=== PATIENT | female | born 1965 | race African-American/Black ===

== ENCOUNTER 2018-03-01 07:26 | Day surgery (SDC) | payer BC ==
[2018-02-28 14:17] VITALS: BMI 57.9
[2018-03-01] MEDS ORDERED: Lidocaine 1% PF 5 ML VIAL ONE (13:35)
[2018-03-01] MEDS ORDERED: PROPOFOL 200 MG/20 ML VIAL ONE (13:35)
--- NOTE | 2018-03-01 14:18 | OP ---
GASTROINTESTINAL ENDOSCOPY NOTE SURGEON: Braydon Hernandez M.D. AIRCRAFT [employer]TER DISPATCHER SURGEON: None. PROCEDURE PERFORMED: Screening colonoscopy. INDICATION: A 53-year-old -[place] woman, here for first average risk screening colonoscopy. She has not had any prior colonoscopy. MEDICATIONS: See anesthesia record. FINDINGS: After discussion of the risks, benefits and alternatives of the procedure, informed consen t was obtained and witnessed. Pre-endoscopic cardiopulmonary examination was satisfactory. Timeout was performed before sedation was achieved. Sedation was achieved with anesthesia assistance in the endoscopy unit. A digital rectal exam was performed which was unremarkable. A Pentax adult colonosc ope was inserted into the anus and passed forward to the cecum in the usual fashion. The cecal base was identified by the appendiceal orifice as well as the ileocecal valve. The terminal ileum was not intubated. The colonoscope was slowly withdrawn in a gradual and circumferential manner with carefu l examination of the entire colonic mucosa. The quality of the prep was good. The colonic mucosa ap peared normal throughout. There was no evidence of any polyps or mass lesions, no mucosal abnormalit ies. Retroflexion in the rectum was unremarkable. The colonoscope was completely withdrawn and the patient allowed to recover. The patient tolerated the procedure well. There were no immediate post- procedure complications. IMPRESSION: Normal colonoscopy to the cecum. RECOMMENDATIONS: Repeat colonoscopy for screening in 10 years.
== END 2018-03-01 11:43 | disposition home or self-care (01) ==
LOC: SDC 07:26
PROVIDERS: ATTEND Internal Medicine
PROC: 0DJD8ZZ Inspection of Lower Intestinal Tract, Via Natural or Artificial Opening Endoscopic (ICD-10-PCS; principal; 2018-03-01)
DX: Z12.11 Encounter for screening for malignant neoplasm of colon (principal); D64.9 Anemia, unspecified; I10 Essential (primary) hypertension; E78.00 Pure hypercholesterolemia, unspecified; E11.9 Type 2 diabetes mellitus without complications; Z79.82 Long term (current) use of aspirin; Z79.899 Other long term (current) drug therapy; Z79.4 Long term (current) use of insulin
CPT/HCPCS: 36416; J2001; J2704

== ENCOUNTER 2018-03-03 09:20 | Outpatient (CLI) | payer BC | END 2018-03-03 09:21 | disposition home or self-care (01) | LOC: BICMAMMO 09:20 | PROVIDERS: ATTEND Family Medicine | DX: Z01.411 Encounter for gynecological examination (general) (routine) with abnormal findings (principal); N63.0 Unspecified lump in unspecified breast; N95.8 Other specified menopausal and perimenopausal disorders; Z80.3 Family history of malignant neoplasm of breast; R92.2 Inconclusive mammogram; E04.1 Nontoxic single thyroid nodule | CPT/HCPCS: 77066; G0279 ==

== ENCOUNTER 2018-03-03 14:23 | Outpatient (CLI) | payer BC | END 2018-03-03 14:24 | disposition home or self-care (01) | LOC: BICULT 14:23 | PROVIDERS: ATTEND Otolaryngology Plastic Surgery within the Head & Neck | DX: E04.1 Nontoxic single thyroid nodule (principal) | CPT/HCPCS: 76536 ==

== ENCOUNTER 2018-12-12 21:30 | Inpatient (IN) | payer BC ==
--- NOTE | 2018-12-12 23:50 | ULT ---
US Venous Doppler Rt Unilat History: [Lower extremity edema] Comparison: None. Findings: Real-time grayscale, color, and spectral analysis of the right lower extremity venous syste m was performed. The common femoral, femoral, proximal portions greater saphenous and deep femoral veins as well as the popliteal and posterior tibial veins were interrogated. Normal flow, augmentation, and compression. Moderate lower extremity edema. Edema does limit evaluati on of the posterior tibial vein. Impression: Limited evaluation the posterior tibial vein. No proximal thrombosis.
[2018-12-13 01:07] LABS: Bilirubin Small (Negative); Blood, Urine Negative (Negative); Clarity CLEAR (Clear); Glucose, Urine (Dipstick) Negative (Negative); Leukocyte Negative (Negative); Nitrite Negative (Negative); Protein, Urine (Dipstick) 30 mg/dL (Neg-Trace); Specific Gravity, Urine 1.027 (1.002-1.036); pH, Urine 5.5 (5.0-9.0)
[2018-12-13 01:09] LABS: Bacteria/HPF None Seen HPF (None Seen); Hyaline Casts/LPF 0-3 HYALINE CAST LPF (0-3 Hyaline); Pathc Cast-AUWi Flag 0.13 (0-2.49); RBC/HPF 0-3 HPF (0-3); WBC/HPF 0-3 HPF (0-3)
[2018-12-13] MEDS ORDERED: Dextrose 5% in Water 1,000 ML IV PRN (01:48)
[2018-12-13] MEDS ORDERED: HumaLOG 300 UNITS/3 ML VIAL SC PRN (01:48)
[2018-12-13] MEDS ORDERED: Dextrose 50% Abboject 50 ML SYRINGE SLOW IVP PRN (01:48)
[2018-12-13] MEDS ORDERED: Ondansetron PF 4 MG/2 ML Vial IVP PRN (01:48)
[2018-12-13] MEDS ORDERED: Bisacodyl 5 MG TAB PO PRN (01:48)
[2018-12-13] MEDS ORDERED: Vancomycin HCl 1 GM in Premix Bag 1 BAG IVPB SCH (02:00)
[2018-12-13] MEDS ORDERED: Insulin Glargine 65 UNITS in Pre-Filled Syringe 1 EACH SC SCH (02:30)
--- NOTE | 2018-12-13 02:41 | HP ---
PRIMARY CARE PROVIDER: Ciara Jacob MD. CHIEF COMPLAINT: Leg pain and swelling. HISTORY OF PRESENT ILLNESS: Ms. Ferny Welch is a pleasant 53-year-old lady who was seen at [facility] on December 13, 2018. She reports that 2 days ago she developed swelling of the right foot. She also reports pain in the right foot, but is unable to further characterize the pain. She took Tylenol at home without significant relief. She also reports chills. She denies any nausea, vomiting, or diarrhea. She reports that the swelling and pain have been constant. Today, her grandson fell on that foot. Since then, she has been unable to bear weight on that foot. 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 She was told to go to the emergency room since it may be infected. She presented to the emergency room at [place]. There, she received Lovenox for suspected DVT as well as Zosyn and vancomycin for infection and was transferred to [facility]. REVIEW OF SYSTEMS: All other systems reviewed and found to be negative. PAST MEDICAL HISTORY: Diabetes mellitus type 2, dyslipidemia, and hypertension. She also has a history of obesity and chronic back pain. PAST SURGICAL HISTORY: Tubal ligation and hysterectomy. PSYCHIATRIC HISTORY: None. SOCIAL HISTORY: The patient denies tobacco use, alcohol use, or recreational drug use. FAMILY HISTORY: Significant for diabetes mellitus and heart disease. ALLERGIES: NO KNOWN DRUG ALLERGIES. CURRENT MEDICATIONS: 1. Lantus 65 units at bedtime. 2. Pravastatin 20 mg daily. 3. Clonidine 0.1 mg daily. 4. Gabapentin 100 mg 3 times a day. 5. Amlodipine 10 mg daily. 6. Potassium chloride 20 mEq daily. 7. Humalog insulin by sliding scale. 8. Ibuprofen p.r.n. PHYSICAL EXAMINATION: GENERAL: Ms. Ferny Welch is awake and alert, not in acute distress. VITAL SIGNS: Blood pressure is 159/70, pulse 90, respiratory rate 27, and oxygen saturation 97% on room air. She is afebrile. EYES: No scleral icterus. No conjunctival pallor. ENT: Moist mucosal membranes. No oropharyngeal erythema or exudates. NECK: Supple, nontender, trachea is midline. RESPIRATORY: Accessory muscles of breathing are not active. Chest wall movements are symmetric bilaterally. Lungs are clear to auscultation without wheeze, rhonchi, or crepitations. CARDIOVASCULAR: S1 and S2 are heard, regular. Peripheral pulses are palpable. No carotid bruit. No pericardial rub. ABDOMEN: Soft, nontender, bowel sounds are heard. NEUROLOGIC: Cranial nerves 2 through 12 are intact. MUSCULOSKELETAL: Power is 5/5 in all 4 extremities. SKIN: She has bilateral lower extremity edema. Right leg and foot are erythematous, warm to touch, and mildly tender. LYMPHATIC: No inguinal lymphadenopathy. PSYCHIATRIC: Normal mood, normal affect, the patient is oriented to person, place, and time. BODY HABITUS: She is obese. LABORATORY DATA: Ms. Isaacs's labs and investigations were reviewed. She has leukocytosis with 13,700 white cells, of which 75.4% are neutrophils. Hemoglobin and platelet count are normal. She has normal electrolytes, normal creatinine, and normal liver profile except for a mildly elevated globulin of 4.6. Urinalysis is negative for nitrite and leukocyte esterase. Venous Dopplers of the right lower extremity was limited evaluation, but there was no proximal thrombosis. ASSESSMENT AND PLAN: Ms. Ferny Welch is a pleasant 53-year-old lady who was seen at [facility] on December 13, 2018. Her problem list includes: 1. Sepsis: Ms. Ferny Welch is presenting with sepsis, most likely secondary to cellulitis of her right lower extremity. She will be admitted to the hospital for further management. 2. Diabetic foot infection: She has cellulitis of the right lower extremity. She has received vancomycin and Zosyn, which I will continue. We will await blood cultures. 3. Diabetes mellitus type 2: We will start the patient on Accu-Cheks and insulin sliding scale. 4. Hypertension: We will monitor vital signs and titrate antihypertensives as needed. 5. Dyslipidemia: We will continue pravastatin. Many thanks for allowing me to participate in your patient's care. Please feel free to contact me with any questions or concerns. LEVEL OF RISK: Moderate. LEVEL OF COMPLEXITY: Moderate. Job ID: [id number]
[2018-12-13 04:12] LABS: #Eosinphils 0.1 thou/uL (0.0-0.7); #Lymphocytes 1.8 thou/uL (1.20-3.40); #Monocytes 0.6 thou/uL (0.11-0.59); %Basophils 0.4 % (0.0-1.0); %Eosinophils 0.6 % (0.0-10.0); %Lymphocytes 17.5 % (21.0-51.0); %Monocytes 5.3 % (0.0-10.0); %Neutrophils 76.2 % (42.0-75.0); Hemoglobin 11.5 g/dL (12.0-16.0); Mean Corpuscular HGB CONC 31.1 g/dL (32.0-36.0); Mean Corpuscular Hemoglobin 25.2 pg (27.0-31.0); Mean Corpuscular Volume 81.1 fL (78.0-98.0); Mean Platelet Volume 11.1 fL (7.4-10.4); Platelet Count 140 thou/uL (130-400); RBC Distribution Width 14.9 % (11.5-14.5); Red Blood Cell (RBC) Count 4.56 mill/uL (4.20-5.40); White Blood Cell (WBC) Count 10.5 thou/uL (4.8-10.8)
[2018-12-13 04:30] LABS: Anion Gap 12 mmol/L (10-20); BUN (Urea Nitrogen) 15 mg/dL (9.8-20.1); Calc. Creatinine Clearance 265 mL/min (70-130); Carbon Dioxide 25 mmol/L (22-29); Chloride 107 mmol/L (98-107); Estimated GFR-MDRD Greater than 90; Glucose 233 mg/dL (70-105); Potassium 3.6 mmol/L (3.5-5.1); Sodium 140 mmol/L (136-145)
[2018-12-13] MEDS: Vancomycin HCl 1.5 GM in Sodium Chloride 0.9% 250 ML 300 ML IVPB SCH ×2 (05:00→17:22)
--- NOTE | 2018-12-13 08:08 | RAD ---
PA AND LATERAL CHEST: Comparison: 06-11-13 History: Dyspnea. FINDINGS: Heart size is enlarged. Pulmonary vessels are mildly engorged. No focal infiltrative process is seen. IMPRESSION: Cardiomegaly with mild pulmonary vascular engorgement. POS: DARRIN
[2018-12-13 08:44] VITALS: BMI 59.0
[2018-12-13] MEDS: Enoxaparin Sodium 40 MG/0.4 ML SYRINGE SC SCH (09:15)
[2018-12-13] MEDS: Piperacillin/Tazobactam 4.5 GM in Sodium Chloride 0.9% 100 ML IVPB SCH ×3 (09:15→16:30)
[2018-12-13] MEDS ORDERED: Enoxaparin Sodium 40 MG/0.4 ML SYRINGE ONE (09:22)
[2018-12-13] MEDS ORDERED: cloNIDine 0.1 MG TAB PO PRN (11:04)
[2018-12-13] MEDS ORDERED: hydrALAZINE 20 MG/ML VIAL SLOW IVP PRN (11:04)
--- NOTE | 2018-12-13 11:44 | PDOC.PN ---
- Subjective Encounter Start Date: 12/13/18 Encounter Start Time: 10:00 Subjective: Resting in bedside chair w/o complaints - Objective Vital Signs & Weight: Vital Signs (12 hours) Temp Pulse Resp BP Pulse Ox 12/13/18 10:45 98.1 F 87 20 180/91 H 97 12/13/18 07:50 98.2 F 90 18 156/116 H 98 Weight Weight 175.994 kg I&O: 12/12/18 12/13/18 12/14/18 06:59 06:59 06:59 Intake Total 600 Balance 600 Result Diagrams: 12/13/18 04:04 12/13/18 04:04 Additional Labs: Accuchecks 12/13/18 07:54 POC Glucose 131 H Phys Exam - Physical Examination HEENT: PERRLA, moist MMs Neck: no nodes Respiratory: clear to auscultation bilateral Cardiovascular: RRR Gastrointestinal: soft, non-tender Musculoskeletal: edema present right worse than left Neurological: normal sensation, moves all 4 limbs Lymphatic: no nodes Psychiatric: normal affect, A&O x 3 Skin: normal turgor, cap refill <2 seconds Deviation from normal: right lower leg /foot erythema, warmth and edema Dx/Plan (1) Cellulitis Code(s): L03.90 - CELLULITIS, UNSPECIFIED Status: Acute (2) Sepsis Code(s): A41.9 - SEPSIS, UNSPECIFIED ORGANISM Status: Acute (3) Diabetes mellitus Code(s): E11.9 - TYPE 2 DIABETES MELLITUS WITHOUT COMPLICATIONS Status: Chronic (4) Hypertension Code(s): I10 - ESSENTIAL (PRIMARY) HYPERTENSION Status: Chronic - Plan cont current plan of care, continue antibiotics, out of bed/ambulate, DVT proph w/heparin, DVT proph w/lovenox Continue IV ABX, -: restart home meds, SS mild scale -: Will continue to monitor * . Review of Systems - Review of Systems Skin: Other - Medications/Allergies Allergies/Adverse Reactions: Allergies Allergy/AdvReac Type Severity Reaction Status Date / Time No Known Allergies Allergy Verified 02/28/18 14:17 Medications: Current Medications Bisacodyl (Dulcolax) 10 mg PO DAILYPRN PRN PRN Reason: Constipation Clonidine (Catapres) 0.1 mg PO Q4H PRN PRN Reason: SBP > 180 Dextrose/Water (Dextrose 50%) 25 gm SLOW IVP PRN PRN PRN Reason: Hypoglycemia Enoxaparin Sodium (Lovenox) 40 mg SC 0900 [facility] Last Admin: 12/13/18 09:15 Dose: 40 mg Glucagon (Glucagon) 1 mg IM PRN PRN PRN Reason: Hypoglycemia Hydralazine HCl (Apresoline) 10 mg SLOW IVP Q4H PRN PRN Reason: SBP > 180 and HR < 70 Insulin Glargine 65 units/ (Miscellaneous Medication) 0.65 mls @ 0 mls/hr SC HS [facility] Dextrose/Water (D5w) 1,000 mls @ 0 mls/hr IV .Q0M PRN PRN Reason: Hypoglycemia Piperacillin Sod/Tazobactam (Sod 4.5 gm/ Sodium Chloride) 100 mls @ 200 mls/hr IVPB Q8HR [facility] Last Admin: 12/13/18 09:15 Dose: 100 mls Vancomycin HCl 1.5 gm/ Sodium (Chloride) 300 mls @ 200 mls/hr IVPB 0500,1700 [facility] Last Admin: 12/13/18 05:00 Dose: 300 mls Insulin Human Lispro (Humalog) 0 units SC .MILD SLIDING SCALE PRN PRN Reason: Mild Correctional Scale Miscellaneous Medication (Pharmacy To Dose) 1 each IVPB PRN PRN PRN Reason: Pharmacy to dose Ondansetron HCl (Zofran) 4 mg IVP Q6H PRN PRN Reason: Nausea/Vomiting
[2018-12-13] MEDS ORDERED: Sodium Chloride 0.9% 10 ML ONE ×2 (11:45→16:27)
[2018-12-13] MEDS ORDERED: Ibuprofen 800 MG TAB PO PRN (16:11)
[2018-12-13] MEDS ORDERED: HYDROcodone/Acetaminophen 5/325 mg Tablet PO PRN (16:12)
[2018-12-13] MEDS: HYDROcodone/Acetaminophen 5/325 mg Tablet PO PRN (16:31)
[2018-12-13] MEDS: Furosemide 40 MG TAB PO SCH (16:31)
[2018-12-13] MEDS ORDERED: Non-Formulary Item 1 EACH (Insulin Glargine,Hum.Rec.Anlog [Lantus Solostar] 65 UNIT) SQ SCH (21:00)
[2018-12-13] MEDS: Pravastatin Sodium 20 MG TAB PO SCH (21:16)
[2018-12-13] MEDS: cloNIDine 0.1 MG TAB PO SCH (21:16)
[2018-12-13] MEDS: Gabapentin 300 MG CAP PO SCH (21:16)
[2018-12-13] MEDS: Insulin Glargine 65 UNITS in Pre-Filled Syringe 1 EACH SC SCH (21:25)
[2018-12-14] MEDS ORDERED: Sodium Chloride 0.9% 10 ML ONE (00:24)
[2018-12-14] MEDS: Piperacillin/Tazobactam 4.5 GM in Sodium Chloride 0.9% 100 ML IVPB SCH ×3 (00:34→16:26)
[2018-12-14] MEDS: Vancomycin HCl 1.5 GM in Sodium Chloride 0.9% 250 ML 300 ML IVPB SCH (04:50)
[2018-12-14] MEDS: HYDROcodone/Acetaminophen 5/325 mg Tablet PO PRN ×2 (06:09→16:31)
[2018-12-14] MEDS: Furosemide 40 MG TAB PO SCH ×2 (08:17→20:31)
[2018-12-14] MEDS: cloNIDine 0.1 MG TAB PO SCH ×2 (08:17→20:30)
[2018-12-14] MEDS: Enoxaparin Sodium 40 MG/0.4 ML SYRINGE SC SCH (08:18)
--- NOTE | 2018-12-14 16:20 | PDOC.PN ---
- Subjective Encounter Start Date: 12/14/18 Encounter Start Time: 14:30 Ms. Ferny Welch was seen today in follow-up of cellulitis of the right foot. She notes continued redness and swelling of the foot. she does not have any new complaints. - Objective MAR Reviewed: Yes Vital Signs & Weight: Vital Signs (12 hours) Temp Pulse Resp BP Pulse Ox 12/14/18 12:00 97.9 F 76 20 174/69 H 12/14/18 08:00 98.5 F 75 20 149/69 H 92 L 12/14/18 04:45 20 Weight Weight 388 lb I&O: 12/13/18 12/14/18 12/15/18 06:59 06:59 06:59 Intake Total 600 Balance 600 Result Diagrams: 12/13/18 04:04 12/13/18 04:04 Additional Labs: Accuchecks 12/14/18 12/14/18 12/13/18 11:53 06:04 21:05 POC Glucose 113 H 145 H 159 H 12/13/18 16:34 POC Glucose 113 H Phys Exam - Physical Examination HEENT: PERRLA Respiratory: no wheezing, no rales, no rhonchi, clear to auscultation bilateral Cardiovascular: RRR, no significant murmur, no rub Gastrointestinal: soft, non-tender, no distention, positive bowel sounds Musculoskeletal: pulses present, edema present + bilateral lymph edema, and erythema in the right foot, and into the calf mild warmth, bilateral chronic venous stasis changes Neurological: non-focal, normal sensation Dx/Plan (1) Diabetes mellitus type 2 in obese Code(s): E11.69 - TYPE 2 DIABETES MELLITUS WITH OTHER SPECIFIED COMPLICATION; E66.9 - OBESITY, UNSPECIFIED Status: Acute (2) Cellulitis Code(s): L03.90 - CELLULITIS, UNSPECIFIED Status: Acute Qualifiers: Site of cellulitis of extremity: lower extremity Laterality: right (3) Hypertension Code(s): I10 - ESSENTIAL (PRIMARY) HYPERTENSION Status: Chronic - Plan * Cellulitis of the right foot and lower extremity- continue IV Vancomycin and Zosyn * Hopefully can transition to oral antibiotics tomorrow if the foot and leg are improved * HTN- blood pressure is elevated- will re-start Amlodipine * DM- blood glucose is stable- continue Lantus and SSI.
[2018-12-14 16:31] LABS: Vancomycin, Trough 11.9 ug/mL
[2018-12-14] MEDS: Gabapentin 300 MG CAP PO SCH (20:31)
[2018-12-14] MEDS: Pravastatin Sodium 20 MG TAB PO SCH (20:31)
[2018-12-14] MEDS: Insulin Glargine 65 UNITS in Pre-Filled Syringe 1 EACH SC SCH (20:35)
[2018-12-15] MEDS: Piperacillin/Tazobactam 4.5 GM in Sodium Chloride 0.9% 100 ML IVPB SCH ×3 (00:33→16:15)
[2018-12-15] MEDS: cloNIDine 0.1 MG TAB PO SCH (08:46)
[2018-12-15] MEDS: Furosemide 40 MG TAB PO SCH (08:46)
[2018-12-15] MEDS: Enoxaparin Sodium 40 MG/0.4 ML SYRINGE SC SCH (08:47)
[2018-12-15] MEDS ORDERED: Amlodipine 10 MG TAB PO SCH (09:00)
--- NOTE | 2018-12-15 15:50 | PDOC.PN ---
- Subjective Encounter Start Date: 12/15/18 Encounter Start Time: 15:49 Ms. Isaacs was seen today in follow-up of cellulitis. She does not have any new complaints - Objective MAR Reviewed: Yes Vital Signs & Weight: Vital Signs (12 hours) Temp Pulse Resp BP BP Pulse Ox 12/15/18 11:16 98.3 F 75 18 151/83 H 94 L 12/15/18 10:34 94 L 12/15/18 08:46 166/92 H 12/15/18 08:45 78 166/92 H 12/15/18 08:00 97.9 F 78 18 166/92 H 94 L 12/15/18 04:00 97.6 F 78 18 141/67 H 92 L Weight Weight 388 lb I&O: 12/14/18 12/15/18 12/16/18 06:59 06:59 06:59 Intake Total 600 950 Balance 600 950 Result Diagrams: 12/13/18 04:04 12/13/18 04:04 Additional Labs: Accuchecks 12/15/18 12/15/18 12/14/18 11:26 04:56 20:32 POC Glucose 93 98 134 H 12/14/18 16:37 POC Glucose 89 Phys Exam - Physical Examination HEENT: PERRLA Respiratory: no wheezing, no rales, no rhonchi, clear to auscultation bilateral Cardiovascular: RRR, no significant murmur, no rub Gastrointestinal: soft, non-tender, no distention, positive bowel sounds Musculoskeletal: pulses present, edema present + chronic venous stasis changes, mild erythema of the right leg right foot swelling, much improved Neurological: non-focal Dx/Plan (1) Diabetes mellitus type 2 in obese Code(s): E11.69 - TYPE 2 DIABETES MELLITUS WITH OTHER SPECIFIED COMPLICATION; E66.9 - OBESITY, UNSPECIFIED Status: Acute (2) Cellulitis Code(s): L03.90 - CELLULITIS, UNSPECIFIED Status: Acute Qualifiers: Site of cellulitis of extremity: lower extremity Laterality: right (3) Hypertension Code(s): I10 - ESSENTIAL (PRIMARY) HYPERTENSION Status: Chronic - Plan * Cellulitis of the right foot- much improved- will transition her to Keflex for 2 weeks followed by Penicillin for 1 month.
[2018-12-15 19:10] VITALS: BP 165/85; TEMP 98
--- NOTE | 2018-12-16 04:07 | DIS ---
DATE OF ADMISSION: 12/13/2018 DATE OF DISCHARGE: 12/15/2018 PRIMARY CARE PHYSICIAN: Ciara Jacob MD DISCHARGE DISPOSITION: Home. PRIMARY DISCHARGE DIAGNOSES: 1. Cellulitis of the right foot and leg. 2. Diabetes mellitus, type 2. 3. Morbid obesity. 4. Hyperlipidemia. 5. Hypertension. 6. Chronic low back pain. DISCHARGE MEDICATIONS: Include; 1. Keflex 500 mg twice a day for 2 weeks followed by penicillin-VK 250 mg 3 times a day for at least a month. 2. Nystatin powder to place between the toes. 3. Pravastatin 20 mg at bedtime. 4. Potassium 20 mEq daily. 5. Insulin 70/30, 65 units twice daily. 6. Ibuprofen 800 mg q.8 as needed. 7. Gabapentin 300 mg at bedtime. 8. Furosemide 40 mg twice daily. 9. Clonidine 0.1 mg twice a day. 10. Amlodipine 10 mg daily. CODE STATUS: Full code. ALLERGIES: NO KNOWN DRUG ALLERGIES. PROCEDURES DONE: During the admission, the patient had a venous Doppler, which was negative for DVT. HOSPITAL COURSE: Ms. Ferny Welch is a pleasant 53-year-old female who presented to the emergency room with complaints of pain and swelling in her right leg and right foot. She was evaluated in the ER. She had an ultrasound of the leg, which ruled out DVT. She was found to have a cellulitis of the lower extremity and started on IV antibiotics. She improved dramatically over the course of the next couple of days and was transitioned over to an oral antibiotic and then discharged home to have close outpatient followup. I also counseled her on the care of her legs with regard to chronic venous stasis, to try to keep her legs elevated, reduce her sodium intake, wear compression stockings during the day. If she is not able to manage the compression stockings, then to wrap it with both legs with an Unruly bandage with light pressure. Also to keep her skin well lubricated and use a nystatin cream between the toes. Job ID: [id number]
--- NOTE | 2018-12-17 14:23 | EKG ---
Test Reason : Blood Pressure : / mmHG Vent. Rate : 086 BPM Atrial Rate : 086 BPM P-R Int : 138 ms QRS Dur : 096 ms QT Int : 374 ms P-R-T Axes : 041 -06 088 degrees QTc Int : 447 ms Sinus rhythm with occasional Premature ventricular complexes Left ventricular hypertrophy with repolarization abnormality Abnormal ECG Confirmed by MERVIN MUSTAFA [id number]), editor at large ESDRAS GOMEZ ([id number]) on 12/17/2018 2:22:59 PM Referred By: Confirmed By:MERVIN MUSTAFA
== END 2018-12-15 18:48 | disposition home or self-care (01) | DRG 872 ==
LOC: ERS 21:30 → OBSVTOIN 12-13 00:57 → ERHOLD 12-13 00:57 → 3SE 12-13 11:19 → T4-A 12-14 20:15
PROVIDERS: ADMIT Internal Medicine; ATTEND Internal Medicine
DX: A41.9 Sepsis, unspecified organism (principal); L03.115 Cellulitis of right lower limb; Z68.43 Body mass index [BMI] 50.0-59.9, adult; E78.5 Hyperlipidemia, unspecified; I10 Essential (primary) hypertension; E11.628 Type 2 diabetes mellitus with other skin complications; G89.29 Other chronic pain; M54.9 Dorsalgia, unspecified; E66.9 Obesity, unspecified; Z98.51 Tubal ligation status; Z90.710 Acquired absence of both cervix and uterus; Z79.4 Long term (current) use of insulin
CPT/HCPCS: 36415; 36416; 71046; 80048; 80202; 81003; 83880; 85025; 87040; 93005; 96365; J1650; J1825; J2543; J3370; J3490; J7050

== ENCOUNTER 2020-05-11 18:06 | Inpatient (IN) | payer OTHER, SELFPAY ==
[2020-05-11] MEDS ORDERED: Acetaminophen 500 MG TAB ONE (19:36)
[2020-05-11 19:58] LABS: CKMB 2.8 ng/mL (0-6.6)
[2020-05-11] MEDS ORDERED: Metoprolol Tartrate 5 MG/5 ML VIAL ONE (20:38)
[2020-05-11 20:55] LABS: SARS-CoV-2 NAA Rapid Test Not Detected (NotDetected)
[2020-05-11] MEDS ORDERED: Dextrose 5% in Water 1,000 ML IV PRN (21:06)
[2020-05-11] MEDS ORDERED: Dextrose 50% Abboject 50 ML SYRINGE SLOW IVP PRN (21:06)
--- NOTE | 2020-05-11 21:12 | PDOC.HHP ---
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 Patient report falling because of the weakness. She also reported general malaise and fever as well as nausea and chills. Patient reports abdominal pain after the fall. She was tested for COVID yesterday. Work-up at [facility] emergency department revealed WBC count elevated to 33. Chest x-ray was unremarkable. Urinalysis did not show any evidence of UTI. Her troponin and lactate were elevated. Patient was diagnosed with sepsis, given a dose of IV Rocephin and vancomycin and then transferred here for further management. ED Course: Patient seen in the ED, not sick looking. Not requiring oxygen. Normal vitals. Troponin in the ED elevated to 1.09. Lactate still elevated to 2.1. Temperature up to 102. Patient was given a dose of Tylenol. Also given metoprolol for hypertension and admitted for further management. Hospitalist ROS - Review of Systems Other: Except as documented, all other systems reviewed and negative - Medication Medications: Medication Instructions Recorded Confirmed Type Furosemide 1 tab PO BID 02/28/18 05/11/20 History Gabapentin 300 mg PO PRN PRN 02/28/18 05/11/20 History Insulin Glargine,Hum.Rec.Anlog 75 - 80 unit SQ BID 02/28/18 05/11/20 History [Lantus Solostar] Insulin Lispro [Humalog Kwikpen 1 unit SQ ASDIR PRN 02/28/18 05/11/20 History U-100] Potassium Acetate 20 meq PO QPM 02/28/18 05/11/20 History Pravastatin Sodium [Pravachol] 1 tab PO HS 02/28/18 05/11/20 History cloNIDine HCl 1 tab PO BID 02/28/18 05/11/20 History Ibuprofen 800 mg PO Q8H PRN 12/13/18 05/11/20 History Nystatin [Nystatin Powder] 1 applic TOP BID #1 bot 12/15/18 05/11/20 Rx Aspirin Chewable 81 mg PO DAILY 05/11/20 05/11/20 History Hospitalist History - Past Medical History Other Medical History: Diabetes mellitus type 2 on insulin, hyperlipidemia, hypertension, chronic back pain - Past Surgical History Past Surgical History: reports: Hysterectomy, Tubal Ligation - Family History Family History: reports: cancer, cardiac disorder, diabetes mellitus (Runs in the family) - Social History Smoking Status: Never smoker Alcohol: reports: None Drugs: reports: none Living Situation: With Family - Exam General Appearance: NAD, awake alert General - other findings: Morbidly obese Eye: PERRL, anicteric sclera ENT: no oropharyngeal lesions Neck: supple, symmetric, no JVD, no thyromegaly Heart: RRR, no murmur, no gallops Respiratory: CTAB, no wheezes, no rales Respiratory - other findings: Diffuse diminished breath sounds Gastrointestinal: soft, non-tender, normal bowel sounds Gastrointestinal - other findings: Obese abdomen Extremities: no cyanosis Extremities - other findings: Bilateral lower extremity lymphedema Skin: normal turgor, no rashes Neurological: cranial nerve grossly intact, no weakness, no focal deficits Musculoskeletal: normal tone, normal strength Psychiatric: normal affect, normal behavior, A&O x 3 Hospitalist Results - Labs Result Diagrams: 05/12/20 01:53 05/12/20 01:53 Lab results: Lactic Acid 2.1 mmol/L (0.5-2.2) 05/11/20 18:50 CK-MB (CK-2) 2.8 ng/mL (0-6.6) 05/11/20 18:50 Troponin I 1.095 ng/mL (< 0.028) H* 05/11/20 18:50 Additional comment: Troponin I 0.095 Lactate 2.1 COVID-19: Negative. Hospitalist H&P A/P - Problem (1) Sepsis Code(s): A41.9 - SEPSIS, UNSPECIFIED ORGANISM Status: Acute Assessment and Plan: Unknown source. (2) Elevated troponin Code(s): R77.8 - OTHER SPECIFIED ABNORMALITIES OF PLASMA PROTEINS Status: Acute Assessment and Plan: Could be secondary to sepsis. Patient has high risk factors for CAD-DM type II, obesity, family history of hea rt disease. (3) Diabetes mellitus type 2 in obese Code(s): E11.69 - TYPE 2 DIABETES MELLITUS WITH OTHER SPECIFIED COMPLICATION; E66.9 - OBESITY, UNSPECIFIED Status: Acute (4) Lymphedema of lower extremity Code(s): I89.0 - LYMPHEDEMA, NOT ELSEWHERE CLASSIFIED Status: Acute (5) Hypertension Code(s): I10 - ESSENTIAL (PRIMARY) HYPERTENSION Status: Chronic - Plan Plan: Admit to telemetry Sepsis protocol initiated. IV hydration with normal saline. Repeat lactate. Broad-spectrum antibiotics-IV cefepime, IV vancomycin and IV Flagyl. Treat elevated troponin as NSTEMI. Continue to trend troponin Full dose Lovenox Obtain echocardiogram. Cardiology consult. Lantus insulin and aggressive insulin sliding scale for glucose management.
[2020-05-11 22:01] LABS: Lactic Acid 1.5 mmol/L (0.5-2.2)
[2020-05-11 22:11] LABS: Critical Call Chem Troponin I RESULT DECREASING; Troponin I 0.939 ng/mL (< 0.028)
[2020-05-11] MEDS: Cefepime 2 GM in Sodium Chloride 0.9% 100 ML IVPB SCH (23:40)
[2020-05-11] MEDS: Sodium Chloride 0.9% 1,000 ML IV SCH (23:40)
[2020-05-11] MEDS: metroNIDAZOLE 500 MG in Premix Bag 1 BAG IVPB SCH (23:40)
[2020-05-12] MEDS: Acetaminophen 325 MG TAB PO PRN ×3 (00:28→20:52)
[2020-05-12 02:34] LABS: Anion Gap 15 mmol/L (10-20); BUN (Urea Nitrogen) 19 mg/dL (9.8-20.1); Calc. Creatinine Clearance 205 mL/min (70-130); Calcium 8.5 mg/dL (7.8-10.44); Carbon Dioxide 24 mmol/L (22-29); Chloride 104 mmol/L (98-107); Estimated GFR-MDRD 80; Glucose 142 mg/dL (70-105); Potassium 3.5 mmol/L (3.5-5.1); Sodium 139 mmol/L (136-145)
[2020-05-12 02:35] LABS: Critical Call Chem Troponin I RESULT DECREASING; Troponin I 0.651 ng/mL (< 0.028)
[2020-05-12 02:50] LABS: Band 2 % (5-11); Hemoglobin 11.5 g/dL (12.0-16.0); Lymphocytes 5 % (21-51); MDiff Complete? YES; Mean Corpuscular HGB CONC 30.8 g/dL (32.0-36.0); Mean Corpuscular Hemoglobin 25.3 pg (27.0-31.0); Mean Platelet Volume 10.9 fL (7.4-10.4); Neutrophil 93 % (42-75); Platelet Count 153 thou/uL (130-400); Platelet Morphology Comment Appears Adequate; RBC Distribution Width 14.9 % (11.5-14.5); RBC Morphology Normal; Red Blood Cell (RBC) Count 4.56 mill/uL (4.20-5.40); White Blood Cell (WBC) Count 20.6 thou/uL (4.8-10.8)
[2020-05-12] MEDS: Cefepime 2 GM in Sodium Chloride 0.9% 100 ML IVPB SCH ×2 (04:18→15:27)
[2020-05-12] MEDS: metroNIDAZOLE 500 MG in Premix Bag 1 BAG IVPB SCH ×2 (04:18→15:27)
[2020-05-12] MEDS ORDERED: Vancomycin 1 GM in Premix Bag 1 BAG IVPB SCH (05:00)
[2020-05-12] MEDS: Enoxaparin Sodium 120 MG/0.8 ML SYRINGE SC SCH ×2 (08:16→20:51)
[2020-05-12] MEDS: Enoxaparin Sodium 30 MG/0.3 ML SYRINGE SC SCH ×2 (08:17→20:51)
[2020-05-12] MEDS ORDERED: Enoxaparin Sodium 120 MG/0.8 ML SYRINGE SC SCH (09:00)
[2020-05-12] MEDS ORDERED: Enoxaparin Sodium 40 MG/0.4 ML SYRINGE SC SCH (09:00)
[2020-05-12] MEDS: Insulin Glargine 40 UNITS in Pre-Filled Syringe 1 EACH SC SCH (12:00)
[2020-05-12] MEDS: Sodium Chloride 0.9% 1,000 ML IV SCH ×2 (12:00→12:56)
[2020-05-12] MEDS ORDERED: Ondansetron ODT 4 MG TAB PO PRN (12:22)
--- NOTE | 2020-05-12 14:06 | CON ---
DATE OF CONSULTATION: REASON FOR CONSULTATION: Elevated troponin. HISTORY OF PRESENT ILLNESS: Ms. Isaacs is a 55-year-old woman, who I have seen and evaluated in the past. She has a previous history of morbid obesity, weighing 405 pounds, in addition to diabetes mellitus, hypertension, hyperlipidemia, and obstructive sleep apnea. She has recently presented with a fall. She states she tripped and fell. She was not able to get up. She called neighbors to assist her. She then states a day later, she developed fevers and chills while at home. [facility] with the above. No chest pain or pressure, no significant shortness of breath present. She has been diagnosed with sepsis of unknown etiology. White blood cell count is markedly elevated at 20,000. PAST MEDICAL HISTORY: Diabetes mellitus, hypertension, hyperlipidemia, obstructive sleep apnea, morbid obesity. HOME MEDICATIONS: Include; 1. Gabapentin. 2. Clonidine. 3. Potassium. 4. Pravastatin. 5. Lasix. 6. Lantus. 7. Humalog. 8. Aspirin. 9. Metolazone. 10. Amlodipine. SURGICAL HISTORY: Hysterectomy. FAMILY HISTORY: Negative for CAD. SOCIAL HISTORY: No current tobacco use. ALLERGIES: NONE. REVIEW OF SYSTEMS: A 10-point review of systems is reviewed and is as above, otherwise negative. PHYSICAL EXAMINATION: GENERAL: Patient is a pleasant female, who is in no acute distress. The patient appears their stated age. She is morbidly obese. VITAL SIGNS: Blood pressure 148/74, pulse 92, temperature 98.4. NEUROLOGIC: The patient is alert and oriented x3 with no focal neurologic deficits. HEENT: Sclerae without icterus. Mouth has moist mucous membranes with normal pallor. NECK: No JVD. Carotid upstroke brisk. No bruits bilaterally. LUNGS: Clear to auscultation with unlabored respirations. BACK: No scoliosis or kyphosis. CARDIAC: Regular rate and rhythm with normal S1 and S2. No S3 or S4 noted. No significant rubs, murmurs, thrills, or gallops noted throughout the precordium. PMI is not displaced. There is no parasternal heave. ABDOMEN: Soft, nontender, nondistended. No peritoneal signs present. No hepatosplenomegaly. No abnormal striae. EXTREMITIES: 2+ femoral and 2+ dorsalis pedis pulses. No cyanosis or clubbing. 3+ pitting edema. SKIN: No gross abnormalities. PERTINENT LABORATORY DATA: Include creatinine at 0.88. Peak troponin 1.095. EKG, normal sinus rhythm with no significant ST-T wave changes suggesting ischemia. IMPRESSION: 1. Elevated troponin. 2. Sepsis of unknown etiology. 3. Morbid obesity. 4. Lower extremity edema. RECOMMENDATIONS: Elevated troponin secondary to recent infection and illness. The patient has no symptoms suggesting angina. No acute ST-T wave changes present. We would treat medically. I would recommend aspirin in addition to beta-faustino therapy. She has been placed on Lovenox and we will continue over the next 24 hours. Echo Doppler did suggest normal LVEF, although technically difficult. She did have moderate concentric LVH. Continue antibiotic therapy. I did appliance counselor her on weight loss. There will be significant comorbidities noted due to her obesity. Her lower extremity edema is likely secondary to central venous hypertension. Job ID: [id number]
--- NOTE | 2020-05-12 14:52 | PDOC.HOSPP ---
- Subjective Encounter Date: 05/12/20 Encounter Time: 11:20 Subjective: Pt is c/o chills. Denies any acute source of infection. - Objective Vital Signs & Weight: Vital Signs (12 hours) Temp Pulse Resp BP Pulse Ox 05/12/20 07:25 98.4 F 92 14 148/74 H 94 L 05/12/20 04:00 97.5 F L 84 18 158/68 H 95 Weight Weight 405 lb I&O: 05/11/20 05/12/20 05/13/20 06:59 06:59 06:59 Intake Total 1700 Balance 1700 Result Diagrams: 05/12/20 01:53 05/12/20 01:53 Additional Labs: Accuchecks 05/12/20 05/11/20 11:35 23:30 POC Glucose 119 H 146 H Hospitalist ROS - Review of Systems Constitutional: reports: chills. denies: fever, sweats, weakness, malaise, other - Medication Medications: Active Medications Generic Name Dose Route Start Last Admin Trade Name Freq PRN Reason Stop Dose Admin Acetaminophen 650 mg 05/11/20 20:59 05/12/20 12:28 Acetaminophen 325 Mg Tab PO 650 mg Q4H PRN Administration Headache/Fever/Mild Pain (1-3) Enoxaparin Sodium 120 mg 05/12/20 09:00 05/12/20 08:16 Enoxaparin Sodium 120 Mg/0.8 Ml Syringe SC 120 mg 0900,2100 ETHEL Administration Enoxaparin Sodium 30 mg 05/12/20 09:00 05/12/20 08:17 Enoxaparin Sodium 30 Mg/0.3 Ml Syringe SC 30 mg 0900,2100 ETHEL Administration Vancomycin HCl 1 gm/ Device 200 mls @ 200 mls/hr 05/12/20 05:00 05/12/20 04:18 IVPB 200 mls 0500,1700 ETHEL Administration Sodium Chloride 1,000 mls @ 100 mls/hr 05/11/20 21:00 05/12/20 12:56 Normal Saline 0.9% IV 1,000 mls .Q10H ETHEL Administration Cefepime HCl 2 gm/ Sodium 100 mls @ 200 mls/hr 05/11/20 22:00 05/12/20 04:18 Chloride IVPB 100 mls Q8HR ETHEL Administration Metronidazole 500 mg/ Device 100 mls @ 100 mls/hr 05/11/20 22:00 05/12/20 04:18 IVPB 100 mls Q8HR ETHEL Administration Insulin Glargine 40 units/ 0.4 mls @ 0 mls/hr 05/12/20 09:00 05/12/20 12:00 Miscellaneous Medication SC Not Given QAM ETHEL Ondansetron HCl 4 mg 05/12/20 12:22 05/12/20 12:28 Ondansetron Odt 4 Mg Tab PO 4 mg Q4H PRN Administration Nausea/Vomiting - Exam General Appearance: awake alert General - other findings: Obese Eye: PERRL, anicteric sclera ENT: normocephalic atraumatic, no oropharyngeal lesions Neck: supple, symmetric, no JVD, no thyromegaly Heart: RRR, no murmur, no gallops, no rubs Respiratory: CTAB, no wheezes, no rales, no ronchi Gastrointestinal: soft, non-tender, non-distended, normal bowel sounds Extremities: no cyanosis, no clubbing, no edema Skin: normal turgor, no lesions Neurological: cranial nerve grossly intact, normal sensation to touch Musculoskeletal: normal tone, normal strength, no muscle wasting Psychiatric: normal affect, normal behavior, A&O x 3 Hosp A/P (1) Elevated troponin Code(s): R77.8 - OTHER SPECIFIED ABNORMALITIES OF PLASMA PROTEINS Status: Acute Plan: Likely due to Type 2 FL from sepsis. Cardiology has been consulted, will await their evaluation and recs. (2) Lymphedema of lower extremity Code(s): I89.0 - LYMPHEDEMA, NOT ELSEWHERE CLASSIFIED Status: Acute Qualifiers: Laterality: bilateral Qualified Code(s): I89.0 - Lymphedema, not elsewhere classified Plan: Monitor for now. Will order stephania wraps. (3) Diabetes mellitus type 2 in obese Code(s): E11.69 - TYPE 2 DIABETES MELLITUS WITH OTHER SPECIFIED COMPLICATION; E66.9 - OBESITY, UNSPECIFIED Status: Acute Plan: Controlled. Cont meds, montor BG, cover with SSI. (4) Sepsis Code(s): A41.9 - SEPSIS, UNSPECIFIED ORGANISM Status: Acute Qualifiers: Sepsis type: sepsis due to unspecified organism Severe sepsis shock status: without septic shock Plan: Unclear etiology/source. Have consulted ID. Cont current abx. (5) Diabetes mellitus Code(s): E11.9 - TYPE 2 DIABETES MELLITUS WITHOUT COMPLICATIONS Status: Chronic (6) Hypertension Code(s): I10 - ESSENTIAL (PRIMARY) HYPERTENSION Status: Chronic Qualifiers: Hypertension type: essential hypertension Qualified Code(s): I10 - Essential (primary) hypertension Plan: Stable. Monitor BP, cont BP meds. (7) Leucocytosis Code(s): D72.829 - ELEVATED WHITE BLOOD CELL COUNT, UNSPECIFIED Status: Acute Qualifiers: Leukocytosis type: unspecified Qualified Code(s): D72.829 - Elevated white blood cell count, unspecified Plan: Unclear etiology. Decreasing with abx. Monitor WBC. - Plan GI proph PPx: SCDs. CODE: Full. Dispo: ID has been consulted. Cont current abx .F/u with Cx results.
[2020-05-12 15:43] LABS: Hemoglobin 11.8 g/dL (12.0-16.0); Mean Corpuscular HGB CONC 29.7 g/dL (32.0-36.0); Mean Corpuscular Hemoglobin 24.5 pg (27.0-31.0); Mean Corpuscular Volume 82.4 fL (78.0-98.0); Mean Platelet Volume 11.3 fL (7.4-10.4); Platelet Count 171 thou/uL (130-400); RBC Distribution Width 15.3 % (11.5-14.5); Red Blood Cell (RBC) Count 4.83 mill/uL (4.20-5.40); White Blood Cell (WBC) Count 19.8 thou/uL (4.8-10.8)
[2020-05-12 15:56] LABS: Anisocytosis SLIGHT = 6-15 cells (100X) (0-5/hpf); Band 17 % (5-11); Hypochromia SLIGHT = 6-15 cells (100X) (0-5/hpf); Lymphocytes 1 % (21-51); MDiff Complete? YES; Monocytes 1 % (0-10); Neutrophil 80 % (42-75); Platelet Morphology Comment Appears Adequate; Polychromasia SLIGHT = 2-3 cells (100X) (0-2/hpf); Reactive Lymphocytes 1 % (0-10)
[2020-05-12] MEDS: HumaLOG 300 UNITS/3 ML VIAL SC PRN (17:39)
[2020-05-12] MEDS ORDERED: FLU VACC QS2020-21(6MOS UP)/PF 60 MCG/0.5 ML SYRINGE IM ONE (21:00)
--- NOTE | 2020-05-12 21:04 | CON ---
DATE OF CONSULTATION: 05/12/2020 REASON FOR CONSULTATION: Fever. HISTORY OF PRESENT ILLNESS: A 55-year-old, who has a history of morbid obesity, type 2 diabetes, hypertension, and prior cellulitis treated in 2019 of the right lower extremity. She presents this time after having tripped while walking over to her car to seed cone picker her grandson. She had noticed that she had been feeling unwell with chills and checked a temperature 100.5 earlier that morning. Did not have any visual symptoms. Some headaches, but no respiratory symptoms, specifically no cough or dyspnea. No nasal symptoms of sore throat. No abdominal pain. Some back pain, which is chronic and some increase in urinary frequency, but no dysuria. No diarrhea or constipation. No bleeding noted. On arrival; her BP was 170/80, pulse 114, temperature 98.9, and O2 saturation 95 on room air. Subsequent temperature went up to 102.2. She appeared in some pain, hurting all over basically. The lung exam was clear. Heart exam was normal. Abdomen was with a very prominent panniculus. There was edema in lower extremities. Other findings on admission; white cell count 20.6, hemoglobin 11, platelets 153 with 93% neutrophils and sodium 139 and creatinine 0.88. SARS-COV was not detected. Chest x-ray normal. Two sets of blood cultures thus far no growth. This is too early to call although. She is feeling somewhat better. REVIEW OF SYSTEMS: A 10-point review of system as above. PAST MEDICAL HISTORY: Morbid obesity, likely sleep apnea, prior episode of cellulitis in 2019 in lower extremity, type 2 diabetes, hyperlipidemia, hypertension, and chronic back pain. PAST SURGICAL HISTORY: Tubal ligation and hysterectomy. SOCIAL HISTORY: Never smoker. Lives in [place] with family. Does not drink. No drug use. FAMILY HISTORY: Type 2 diabetes, coronary artery disease, and some form of cancer. ALLERGIES: LISINOPRIL AND METFORMIN. CURRENT MEDICATION LIST: Include; 1. Cefepime. 2. Glucagon. 3. Influenza. 4. Flagyl. 5. Vancomycin. PHYSICAL EXAMINATION: VITAL SIGNS: T-max 99, BP 140/80, heart rate 78, respiratory rate 15, and O2 saturation 97 on room air. GENERAL: Pleasant. Does not appear in distress, a little bit tachypneic. SKIN: Shows lymphedema with marked tenderness in the right leg. She rated at 7/10 the pain. There has been swelling of the right leg as well lately. There is lipodermatosclerosis in the extremities, more intense on the right side. Peripheral IV access. No lymphadenopathy. HEENT: Ocular movements conjugate. Sclerae white. Conjunctivae normal. Oral cavity with a few missing teeth. Oral mucosa normal. NECK: Supple. No jugular vein distention. LUNGS: Symmetric clear breath sounds. HEART: Diminished heart sounds. S1 and S2 without murmurs. No S3 or S4. ABDOMEN: With very prominent panniculus, which makes a very difficult abdominal exam, but she does not have any tenderness. Some intertriginous maceration in the groin area as expected. No joint inflammatory activity. Lymphedema in lower extremities, right greater than left. Pulses 1+ in dorsalis pedis. NEURO: Nonfocal. LABORATORY DATA: The labs have been reviewed above. ASSESSMENT: Morbid obesity, lymphedema of lower extremities, prior episodes of cellulitis, fever with evidence of cellulitis in the right leg, and leukocytosis due to the above. 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 This is a recurrence. We will switch her to cefazolin three times a day. Discontinue remainder of antimicrobials and then once there is clinical improvement, transition to oral Keflex and after that then suppressive penicillin VK 250 b.i.d. for 12 months plus compression stockings. Compression stockings have been found to be highly effective in preventing recurrence of cellulitis in the patients with chronic venous stasis in the recently published randomized controlled trial. She has not had a vascular ultrasound. We will go ahead and order a duplex ultrasound to rule out DVT to complete the workup. Job ID: [id number]
--- NOTE | 2020-05-12 21:21 | ULT ---
RIGHT LOWER EXTREMITY VENOUS DUPLEX EXAM: Indications: Right lower extremity pain and edema. FINDINGS: Deep veins right lower extremity evaluated with ultrasound and doppler with color doppler and spectra l analysis and compression. Technologist state the exam is limited due to patient's body habitus. Deep veins evaluate include common femoral vein, greater saphenous femoral vein, profunda femoral, po pliteal and posterior tibial veins all show normal flow and compression. No evidence of DVT. IMPRESSION: No evidence of right lower extremity DVT. POS: AGW
[2020-05-12] MEDS: CEFAZOLIN 2 GM in Premix Bag 1 BAG IVPB SCH (22:16)
[2020-05-12 23:41] LABS: Bacteria/HPF None Seen HPF (None Seen); Bilirubin Negative (Negative); Blood, Urine Trace (Negative); Clarity Clear (Clear); Glucose, Urine (Dipstick) Normal (Negative); Ketone, Urine Trace mg/dL (Negative); Leukocyte Negative Leu/uL (Negative); Nitrite Negative (Negative); Protein, Urine (Dipstick) 50 mg/dL (Neg-Trace); RBC/HPF 0-3 HPF (0-3); pH, Urine 5.5 (5.0-9.0)
[2020-05-13] MEDS: Acetaminophen 325 MG TAB PO PRN ×3 (04:23→20:46)
[2020-05-13] MEDS: Sodium Chloride 0.9% 1,000 ML IV SCH ×2 (04:24→13:16)
[2020-05-13 04:42] LABS: Anion Gap 13 mmol/L (10-20); BUN (Urea Nitrogen) 14 mg/dL (9.8-20.1); Calc. Creatinine Clearance 231 mL/min (70-130); Calcium 8.4 mg/dL (7.8-10.44); Carbon Dioxide 25 mmol/L (22-29); Chloride 105 mmol/L (98-107); Estimated GFR-MDRD Greater than 90; Glucose 167 mg/dL (70-105); Potassium 3.6 mmol/L (3.5-5.1); Sodium 139 mmol/L (136-145)
[2020-05-13] MEDS: CEFAZOLIN 2 GM in Premix Bag 1 BAG IVPB SCH ×3 (05:56→22:11)
[2020-05-13] MEDS: HumaLOG 300 UNITS/3 ML VIAL SC PRN ×2 (06:28→13:19)
[2020-05-13] MEDS: Enoxaparin Sodium 30 MG/0.3 ML SYRINGE SC SCH ×2 (08:32→20:39)
[2020-05-13] MEDS: Insulin Glargine 40 UNITS in Pre-Filled Syringe 1 EACH SC SCH (08:33)
[2020-05-13] MEDS: Enoxaparin Sodium 120 MG/0.8 ML SYRINGE SC SCH ×2 (08:33→20:38)
[2020-05-13] MEDS: Labetalol HCl 100 MG/20 ML VIAL SLOW IVP PRN ×2 (11:22→20:37)
--- NOTE | 2020-05-13 12:27 | PDOC.HOSPP ---
- Subjective Encounter Date: 05/13/20 Encounter Time: 12:23 Subjective: no fever, chills - Objective Vital Signs & Weight: Vital Signs (12 hours) Temp Pulse Resp BP BP Pulse Ox 05/13/20 11:26 98 F 99 18 212/93 H 94 L 05/13/20 11:22 99 212/93 H 05/13/20 08:40 93 L 05/13/20 08:31 97.8 F 90 18 168/75 H 93 L 05/13/20 04:13 98.8 F 107 H 26 H 150/70 H 91 L 05/13/20 00:34 99.2 F 100 20 168/78 H Weight Weight 411 lb I&O: 05/12/20 05/13/20 05/14/20 06:59 06:59 06:59 Intake Total 1700 2700 Balance 1700 2700 Result Diagrams: 05/12/20 15:26 05/13/20 04:06 Additional Labs: Accuchecks 05/13/20 05/13/20 05/12/20 12:12 06:20 20:58 POC Glucose 189 H 169 H 136 H 05/12/20 17:09 POC Glucose 182 H Hospitalist ROS - Medication Medications: Active Medications Generic Name Dose Route Start Last Admin Trade Name Freq PRN Reason Stop Dose Admin Acetaminophen 650 mg 05/11/20 20:59 05/13/20 11:06 Acetaminophen 325 Mg Tab PO 650 mg Q4H PRN Administration Headache/Fever/Mild Pain (1-3) Diltiazem HCl 180 mg 05/13/20 09:00 05/13/20 09:56 Diltiazem Hcl Cd 180 Mg Capsule PO 180 mg DAILY ETHEL Administration Enoxaparin Sodium 120 mg 05/12/20 09:00 05/13/20 08:33 Enoxaparin Sodium 120 Mg/0.8 Ml Syringe SC 120 mg 899,2099 ETHEL Administration Enoxaparin Sodium 30 mg 05/12/20 09:00 05/13/20 08:32 Enoxaparin Sodium 30 Mg/0.3 Ml Syringe SC 30 mg 00,2100 ETHEL Administration Sodium Chloride 1,000 mls @ 100 mls/hr 05/11/20 21:00 05/13/20 04:24 Normal Saline 0.9% IV 1,000 mls .Q10H ETHEL Administration Insulin Glargine 40 units/ 0.4 mls @ 0 mls/hr 05/12/20 09:00 05/13/20 08:33 Miscellaneous Medication SC 0.4 mls QAM ETHEL Administration Cefazolin Sodium/Dextrose 2 gm 50 mls @ 100 mls/hr 05/12/20 22:00 05/13/20 05:56 / Device IVPB 50 mls Q8HR ETHEL Administration Insulin Human Lispro 0 units 05/11/20 21:06 05/13/20 06:28 Humalog 300 Units/3 Ml Vial SC 3 unit .AGGRESSIVE SLIDING PRN Administration Aggressive Correctional Scale Labetalol HCl 10 mg 05/12/20 21:15 05/13/20 11:22 Labetalol Hcl 100 Mg/20 Ml Vial SLOW IVP 2 ml Q4H PRN Administration SBP Greater Than 180 Ondansetron HCl 4 mg 05/12/20 12:22 05/12/20 12:28 Ondansetron Odt 4 Mg Tab PO 4 mg Q4H PRN Administration Nausea/Vomiting - Exam General Appearance: awake alert Neck: no JVD Heart: RRR, no murmur Respiratory: CTAB, no wheezes Gastrointestinal: soft, non-tender, normal bowel sounds Extremities - other findings: bilat lymphedema, warm , tender RLL Hosp A/P (1) Cellulitis and abscess of right leg Code(s): L03.115 - CELLULITIS OF RIGHT LOWER LIMB; L02.415 - CUTANEOUS ABSCESS OF RIGHT LOWER LIMB Status: Acute (2) Leucocytosis Code(s): D72.829 - ELEVATED WHITE BLOOD CELL COUNT, UNSPECIFIED Status: Acute Qualifiers: Leukocytosis type: unspecified Qualified Code(s): D72.829 - Elevated white blood cell count, unspecified (3) Lymphedema of lower extremity Code(s): I89.0 - LYMPHEDEMA, NOT ELSEWHERE CLASSIFIED Status: Acute Qualifiers: Laterality: bilateral Qualified Code(s): I89.0 - Lymphedema, not elsewhere classified (4) Diabetes mellitus type 2 in obese Code(s): E11.69 - TYPE 2 DIABETES MELLITUS WITH OTHER SPECIFIED COMPLICATION; E66.9 - OBESITY, UNSPECIFIED Status: Acute (5) Hypertension Code(s): I10 - ESSENTIAL (PRIMARY) HYPERTENSION Status: Chronic Qualifiers: Hypertension type: essential hypertension Qualified Code(s): I10 - Essential (primary) hypertension - Plan appreciate ID input cont iv cefazolin aac/ss/ etc BP control monitor CBC, etc
[2020-05-13] MEDS: Furosemide 40 MG TAB PO SCH (20:38)
[2020-05-13] MEDS: cloNIDine 0.1 MG TAB PO SCH (20:38)
[2020-05-13] MEDS: Simvastatin 10 MG TAB PO SCH (20:39)
[2020-05-14] MEDS: CEFAZOLIN 2 GM in Premix Bag 1 BAG IVPB SCH ×3 (05:42→21:29)
--- NOTE | 2020-05-14 07:41 | PDOC.HOSPP ---
- Subjective Encounter Date: 05/14/20 Encounter Time: 07:37 Subjective: no fever, chills - Objective Vital Signs & Weight: Vital Signs (12 hours) Temp Pulse Resp BP BP BP Pulse Ox 05/14/20 05:54 85 163/72 H 05/14/20 04:00 98.3 F 87 16 176/76 H 95 05/14/20 00:00 98.2 F 86 16 172/76 H 95 05/13/20 21:30 89 177/75 H 05/13/20 20:38 193/83 H 05/13/20 20:37 91 193/83 H 05/13/20 20:00 97.9 F 91 16 193/83 H 94 L Weight Weight 335 lb 4.8 oz I&O: 05/13/20 05/14/20 05/15/20 06:59 06:59 06:59 Intake Total 2700 480 Balance 2700 480 Result Diagrams: 05/12/20 15:26 05/13/20 04:06 Additional Labs: Accuchecks 05/13/20 05/13/20 20:46 12:12 POC Glucose 160 H 189 H Hospitalist ROS - Medication Medications: Active Medications Generic Name Dose Route Start Last Admin Trade Name Freq PRN Reason Stop Dose Admin Acetaminophen 650 mg 05/11/20 20:59 05/13/20 20:46 Acetaminophen 325 Mg Tab PO 650 mg Q4H PRN Administration Headache/Fever/Mild Pain (1-3) Clonidine 0.1 mg 05/13/20 21:00 05/13/20 20:38 Clonidine 0.1 Mg Tab PO 0.1 mg BID ETHEL Administration Diltiazem HCl 180 mg 05/13/20 09:00 05/13/20 09:56 Diltiazem Hcl Cd 180 Mg Capsule PO 180 mg DAILY ETHEL Administration Enoxaparin Sodium 120 mg 05/12/20 09:00 05/13/20 20:38 Enoxaparin Sodium 120 Mg/0.8 Ml Syringe SC 120 mg 899,2099 ETHEL Administration Enoxaparin Sodium 30 mg 05/12/20 09:00 05/13/20 20:39 Enoxaparin Sodium 30 Mg/0.3 Ml Syringe SC 30 mg 00,2100 ETHEL Administration Furosemide 40 mg 05/13/20 21:00 05/13/20 20:38 Furosemide 40 Mg Tab PO 40 mg BID ETHEL Administration Insulin Glargine 40 units/ 0.4 mls @ 0 mls/hr 05/12/20 09:00 05/13/20 08:33 Miscellaneous Medication SC 0.4 mls QAM ETHEL Administration Cefazolin Sodium/Dextrose 2 gm 50 mls @ 100 mls/hr 05/12/20 22:00 05/14/20 05:42 / Device IVPB 50 mls Q8HR ETHEL Administration Insulin Human Lispro 0 units 05/11/20 21:06 05/13/20 13:19 Humalog 300 Units/3 Ml Vial SC 3 unit .AGGRESSIVE SLIDING PRN Administration Aggressive Correctional Scale Labetalol HCl 10 mg 05/12/20 21:15 05/13/20 20:37 Labetalol Hcl 100 Mg/20 Ml Vial SLOW IVP 2 ml Q4H PRN Administration SBP Greater Than 180 Ondansetron HCl 4 mg 05/12/20 12:22 05/12/20 12:28 Ondansetron Odt 4 Mg Tab PO 4 mg Q4H PRN Administration Nausea/Vomiting Simvastatin 10 mg 05/13/20 21:00 05/13/20 20:39 Simvastatin 10 Mg Tab PO 10 mg HS ETHEL Administration - Exam General Appearance: awake alert Neck: no JVD Heart: RRR, no murmur Respiratory: CTAB Gastrointestinal: soft, non-distended, normal bowel sounds Extremities: 2+ LE edema Extremities - other findings: red, warm area R ant lower leg Hosp A/P (1) Cellulitis and abscess of right leg Code(s): L03.115 - CELLULITIS OF RIGHT LOWER LIMB; L02.415 - CUTANEOUS ABSCESS OF RIGHT LOWER LIMB Status: Acute (2) Leucocytosis Code(s): D72.829 - ELEVATED WHITE BLOOD CELL COUNT, UNSPECIFIED Status: Acute Qualifiers: Leukocytosis type: unspecified Qualified Code(s): D72.829 - Elevated white blood cell count, unspecified (3) Lymphedema of lower extremity Code(s): I89.0 - LYMPHEDEMA, NOT ELSEWHERE CLASSIFIED Status: Acute Qualifiers: Laterality: bilateral Qualified Code(s): I89.0 - Lymphedema, not elsewhere classified (4) Diabetes mellitus type 2 in obese Code(s): E11.69 - TYPE 2 DIABETES MELLITUS WITH OTHER SPECIFIED COMPLICATION; E66.9 - OBESITY, UNSPECIFIED Status: Acute (5) Hypertension Code(s): I10 - ESSENTIAL (PRIMARY) HYPERTENSION Status: Chronic Qualifiers: Hypertension type: essential hypertension Qualified Code(s): I10 - Essential (primary) hypertension - Plan appreciate ID input cont iv cefazolin ac/ss/ etc BP control monitor CBC, etc
[2020-05-14 08:06] LABS: #Eosinphils 0.2 thou/uL (0.0-0.7); #Lymphocytes 2.1 thou/uL (1.20-3.40); #Monocytes 0.8 thou/uL (0.11-0.59); %Basophils 0.2 % (0.0-1.0); %Eosinophils 1.3 % (0.0-10.0); %Lymphocytes 14.9 % (21.0-51.0); %Monocytes 5.6 % (0.0-10.0); Hemoglobin 11.3 g/dL (12.0-16.0); Mean Corpuscular Hemoglobin 25.6 pg (27.0-31.0); Mean Corpuscular Volume 82.6 fL (78.0-98.0); Mean Platelet Volume 10.5 fL (7.4-10.4); Platelet Count 166 thou/uL (130-400); RBC Distribution Width 15.1 % (11.5-14.5); Red Blood Cell (RBC) Count 4.42 mill/uL (4.20-5.40); White Blood Cell (WBC) Count 14.1 thou/uL (4.8-10.8)
[2020-05-14] MEDS: Insulin Glargine 40 UNITS in Pre-Filled Syringe 1 EACH SC SCH (08:49)
[2020-05-14] MEDS: Enoxaparin Sodium 30 MG/0.3 ML SYRINGE SC SCH ×2 (08:49→20:38)
[2020-05-14] MEDS: Enoxaparin Sodium 120 MG/0.8 ML SYRINGE SC SCH ×2 (08:51→20:38)
[2020-05-14] MEDS: Aspirin Chewable 81 MG TAB PO SCH (08:51)
[2020-05-14] MEDS: Furosemide 40 MG TAB PO SCH ×2 (08:54→20:38)
[2020-05-14] MEDS: cloNIDine 0.1 MG TAB PO SCH ×2 (08:54→20:37)
[2020-05-14] MEDS: hydrALAZINE 25 MG TAB PO SCH ×2 (08:54→20:38)
[2020-05-14] MEDS: HumaLOG 300 UNITS/3 ML VIAL SC PRN ×2 (11:38→17:01)
[2020-05-14] MEDS: Labetalol HCl 100 MG/20 ML VIAL SLOW IVP PRN (17:02)
[2020-05-14] MEDS: Polyethylene Glycol 3350 17 GM Packet PO PRN (18:40)
[2020-05-14] MEDS: Simvastatin 10 MG TAB PO SCH (20:38)
[2020-05-15] MEDS: Acetaminophen 325 MG TAB PO PRN ×2 (00:16→21:07)
[2020-05-15] MEDS: CEFAZOLIN 2 GM in Premix Bag 1 BAG IVPB SCH ×3 (05:54→21:09)
--- NOTE | 2020-05-15 08:20 | PDOC.HOSPP ---
- Subjective Encounter Date: 05/15/20 Encounter Time: 08:18 Subjective: blister on R lower leg, no fever, chills - Objective Vital Signs & Weight: Vital Signs (12 hours) Temp Pulse Resp BP BP BP Pulse Ox 05/15/20 06:00 156/68 H 05/15/20 04:00 97.9 F 87 20 184/80 H 95 05/15/20 00:00 98.6 F 95 20 183/81 H 94 L 05/14/20 20:38 75 175/75 H 05/14/20 20:37 175/75 H 05/14/20 20:30 96 Weight Weight 392 lb 9 oz I&O: 05/14/20 05/15/20 05/16/20 06:59 06:59 06:59 Intake Total 480 1130 Balance 480 1130 Result Diagrams: 05/14/20 07:59 05/13/20 04:06 Additional Labs: Accuchecks 05/15/20 05/14/20 05/14/20 05:54 21:38 16:32 POC Glucose 139 H 185 H 186 H 05/13/20 17:19 POC Glucose 141 H Hospitalist ROS - Medication Medications: Active Medications Generic Name Dose Route Start Last Admin Trade Name Freq PRN Reason Stop Dose Admin Acetaminophen 650 mg 05/11/20 20:59 05/15/20 00:16 Acetaminophen 325 Mg Tab PO 650 mg Q4H PRN Administration Headache/Fever/Mild Pain (1-3) Aspirin 81 mg 05/14/20 09:00 05/14/20 08:51 Aspirin Chewable 81 Mg Tab PO 81 mg DAILY ETHEL Administration Clonidine 0.1 mg 05/13/20 21:00 05/14/20 20:37 Clonidine 0.1 Mg Tab PO 0.1 mg BID ETHEL Administration Diltiazem HCl 180 mg 05/13/20 09:00 05/14/20 08:54 Diltiazem Hcl Cd 180 Mg Capsule PO 180 mg DAILY ETHEL Administration Enoxaparin Sodium 120 mg 05/12/20 09:00 05/14/20 20:38 Enoxaparin Sodium 120 Mg/0.8 Ml Syringe SC 120 mg 0900,2100 ETHEL Administration Enoxaparin Sodium 30 mg 05/12/20 09:00 05/14/20 20:38 Enoxaparin Sodium 30 Mg/0.3 Ml Syringe SC 30 mg 0900,2100 ETHEL Administration Furosemide 40 mg 05/13/20 21:00 05/14/20 20:38 Furosemide 40 Mg Tab PO 40 mg BID ETHEL Administration Hydralazine HCl 25 mg 05/14/20 09:00 05/14/20 20:38 Hydralazine 25 Mg Tab PO 25 mg BID ETHEL Administration Insulin Glargine 40 units/ 0.4 mls @ 0 mls/hr 05/12/20 09:00 05/14/20 08:49 Miscellaneous Medication SC 0.4 mls QAM ETHEL Administration Cefazolin Sodium/Dextrose 2 gm 50 mls @ 100 mls/hr 05/12/20 22:00 05/15/20 05 :54 / Device IVPB 50 mls Q8HR ETHEL Administration Insulin Human Lispro 0 units 05/11/20 21:06 05/14/20 17:01 Humalog 300 Units/3 Ml Vial SC 3 unit .AGGRESSIVE SLIDING PRN Administration Aggressive Correctional Scale Labetalol HCl 10 mg 05/12/20 21:15 05/14/20 17:02 Labetalol Hcl 100 Mg/20 Ml Vial SLOW IVP 10 mg Q4H PRN Administration SBP Greater Than 180 Ondansetron HCl 4 mg 05/12/20 12:22 05/12/20 12:28 Ondansetron Odt 4 Mg Tab PO 4 mg Q4H PRN Administration Nausea/Vomiting Polyethylene Glycol 17 gm 05/14/20 18:27 05/14/20 18:40 Polyethylene Glycol 3350 17 Gm Packet PO 17 gm DAILYPRN PRN Administration Constipation Simvastatin 10 mg 05/13/20 21:00 05/14/20 20:38 Simvastatin 10 Mg Tab PO 10 mg HS ETHEL Administration Sodium Chloride 10 ml 05/11/20 20:59 05/14/20 21:29 Flush - Normal Saline 10 Ml Syringe IVF 10 ml Q12HR PRN Administration Saline Flush - Exam General Appearance: awake alert Neck: no JVD Heart: RRR, no murmur Respiratory: CTAB Gastrointestinal: soft, non-tender, normal bowel sounds Extremities - other findings: lymphedema Bilat lower ext, 3-5 cm blister R lower let. erythema, heat reso Hosp A/P (1) Cellulitis and abscess of right leg Code(s): L03.115 - CELLULITIS OF RIGHT LOWER LIMB; L02.415 - CUTANEOUS ABSCESS OF RIGHT LOWER LIMB Status: Acute (2) Leucocytosis Code(s): D72.829 - ELEVATED WHITE BLOOD CELL COUNT, UNSPECIFIED Status: Acute Qualifiers: Leukocytosis type: unspecified Qualified Code(s): D72.829 - Elevated white blood cell count, unspecified (3) Lymphedema of lower extremity Code(s): I89.0 - LYMPHEDEMA, NOT ELSEWHERE CLASSIFIED Status: Acute Qualifiers: Laterality: bilateral Qualified Code(s): I89.0 - Lymphedema, not elsewhere classified (4) Diabetes mellitus type 2 in obese Code(s): E11.69 - TYPE 2 DIABETES MELLITUS WITH OTHER SPECIFIED COMPLICATION; E66.9 - OBESITY, UNSPECIFIED Status: Acute (5) Hypertension Code(s): I10 - ESSENTIAL (PRIMARY) HYPERTENSION Status: Chronic Qualifiers: Hypertension type: essential hypertension Qualified Code(s): I10 - Essential (primary) hypertension - Plan Wound care to look at legs cont iv cefazolin ac/ss/ etc BP control monitor CBC, etc
[2020-05-15 09:21] LABS: #Basophils 0.1 thou/uL (0.0-0.2); #Eosinphils 0.3 thou/uL (0.0-0.7); #Lymphocytes 2.4 thou/uL (1.20-3.40); #Monocytes 0.8 thou/uL (0.11-0.59); #Neutrophils 11.7 thou/uL (1.40-6.50); %Basophils 0.3 % (0.0-1.0); %Lymphocytes 15.7 % (21.0-51.0); %Monocytes 5.4 % (0.0-10.0); %Neutrophils 76.6 % (42.0-75.0); Mean Corpuscular HGB CONC 30.3 g/dL (32.0-36.0); Mean Corpuscular Hemoglobin 25.2 pg (27.0-31.0); Mean Corpuscular Volume 83.2 fL (78.0-98.0); Mean Platelet Volume 10.7 fL (7.4-10.4); Platelet Count 184 thou/uL (130-400); RBC Distribution Width 15.2 % (11.5-14.5); Red Blood Cell (RBC) Count 4.75 mill/uL (4.20-5.40); White Blood Cell (WBC) Count 15.3 thou/uL (4.8-10.8)
[2020-05-15] MEDS: cloNIDine 0.1 MG TAB PO SCH ×2 (09:32→19:57)
[2020-05-15] MEDS: Enoxaparin Sodium 30 MG/0.3 ML SYRINGE SC SCH ×2 (09:33→21:07)
[2020-05-15] MEDS: hydrALAZINE 25 MG TAB PO SCH ×2 (09:33→19:57)
[2020-05-15] MEDS: Aspirin Chewable 81 MG TAB PO SCH (09:33)
[2020-05-15] MEDS: Furosemide 40 MG TAB PO SCH ×2 (09:33→19:57)
[2020-05-15] MEDS: Insulin Glargine 40 UNITS in Pre-Filled Syringe 1 EACH SC SCH (09:33)
[2020-05-15] MEDS: Enoxaparin Sodium 120 MG/0.8 ML SYRINGE SC SCH ×2 (09:33→21:07)
[2020-05-15 09:41] LABS: Calc. Creatinine Clearance 233 mL/min (70-130); Estimated GFR-MDRD Greater than 90
[2020-05-15] MEDS: HumaLOG 300 UNITS/3 ML VIAL SC PRN (11:43)
[2020-05-15] MEDS: Polyethylene Glycol 3350 17 GM Packet PO PRN (15:54)
[2020-05-15] MEDS: Simvastatin 10 MG TAB PO SCH (19:57)
[2020-05-16] MEDS: CEFAZOLIN 2 GM in Premix Bag 1 BAG IVPB SCH ×2 (06:28→13:50)
[2020-05-16 08:04] VITALS: TEMP 98.2
[2020-05-16] MEDS: cloNIDine 0.1 MG TAB PO SCH (08:38)
[2020-05-16] MEDS: Furosemide 40 MG TAB PO SCH (08:38)
[2020-05-16] MEDS: Insulin Glargine 40 UNITS in Pre-Filled Syringe 1 EACH SC SCH (08:38)
[2020-05-16] MEDS: Enoxaparin Sodium 30 MG/0.3 ML SYRINGE SC SCH (08:38)
[2020-05-16] MEDS: Aspirin Chewable 81 MG TAB PO SCH (08:38)
[2020-05-16] MEDS: hydrALAZINE 25 MG TAB PO SCH (08:38)
[2020-05-16 08:43] VITALS: BP 172/64
[2020-05-16] MEDS: Enoxaparin Sodium 120 MG/0.8 ML SYRINGE SC SCH (09:38)
--- NOTE | 2020-05-16 10:03 | PDOC.HOSPP ---
- Subjective Encounter Date: 05/16/20 Encounter Time: 10:02 Subjective: no fever, R leg draining serous fluid - Objective Vital Signs & Weight: Vital Signs (12 hours) Temp Pulse Resp BP BP BP BP 05/16/20 08:38 96 172/64 H 05/16/20 08:00 98.2 F 96 18 186/76 H 05/16/20 03:55 144/64 H 05/15/20 23:57 160/80 H Pulse Ox 05/16/20 08:38 05/16/20 08:00 95 05/16/20 03:55 05/15/20 23:57 Weight Weight 381 lb 11.2 oz I&O: 05/15/20 05/16/20 05/17/20 06:59 06:59 06:59 Intake Total 1130 1170 Balance 1130 1170 Result Diagrams: 05/15/20 09:12 05/15/20 09:12 Additional Labs: Accuchecks 05/16/20 05/15/20 05/15/20 05:39 21:08 16:20 POC Glucose 141 H 164 H 142 H 05/15/20 11:24 POC Glucose 165 H Hospitalist ROS - Medication Medications: Active Medications Generic Name Dose Route Start Last Admin Trade Name Freq PRN Reason Stop Dose Admin Acetaminophen 650 mg 05/11/20 20:59 05/15/20 21:07 Acetaminophen 325 Mg Tab PO 650 mg Q4H PRN Administration Headache/Fever/Mild Pain (1-3) Aspirin 81 mg 05/14/20 09:00 05/16/20 08:38 Aspirin Chewable 81 Mg Tab PO 81 mg DAILY ETHEL Administration Clonidine 0.1 mg 05/13/20 21:00 05/16/20 08:38 Clonidine 0.1 Mg Tab PO 0.1 mg BID ETHEL Administration Diltiazem HCl 180 mg 05/13/20 09:00 05/16/20 08:38 Diltiazem Hcl Cd 180 Mg Capsule PO 180 mg DAILY ETHEL Administration Enoxaparin Sodium 120 mg 05/12/20 09:00 05/16/20 09:38 Enoxaparin Sodium 120 Mg/0.8 Ml Syringe SC 120 mg 0900,2100 ETHEL Administration Enoxaparin Sodium 30 mg 05/12/20 09:00 05/16/20 08:38 Enoxaparin Sodium 30 Mg/0.3 Ml Syringe SC 30 mg 0900,2100 ETHEL Administration Furosemide 40 mg 05/13/20 21:00 05/16/20 08:38 Furosemide 40 Mg Tab PO 40 mg BID ETHEL Administration Hydralazine HCl 25 mg 05/14/20 09:00 05/16/20 08:38 Hydralazine 25 Mg Tab PO 25 mg BID ETHEL Administration Insulin Glargine 40 units/ 0.4 mls @ 0 mls/hr 05/12/20 09:00 05/16/20 08:38 Miscellaneous Medication SC 0.4 mls QAM ETHEL Administration Cefazolin Sodium/Dextrose 2 gm 50 mls @ 100 mls/hr 05/12/20 22:00 05/16/20 06:28 / Device IVPB 50 mls Q8HR ETHEL Administration Insulin Human Lispro 0 units 05/11/20 21:06 05/15/20 11:43 Humalog 300 Units/3 Ml Vial SC 3 unit .AGGRESSIVE SLIDING PRN Administration Aggressive [employer] Scale Labetalol HCl 10 mg 05/12/20 21:15 05/14/20 17:02 Labetalol Hcl 100 Mg/20 Ml Vial SLOW IVP 10 mg Q4H PRN Administration SBP Greater Than 180 Ondansetron HCl 4 mg 05/12/20 12:22 05/12/20 12:28 Ondansetron Odt 4 Mg Tab PO 4 mg Q4H PRN Administration Nausea/Vomiting Polyethylene Glycol 17 gm 05/14/20 18:27 05/15/20 15:54 Polyethylene Glycol 3350 17 Gm Packet PO 17 gm DAILYPRN PRN Administration Constipation Simvastatin 10 mg 05/13/20 21:00 05/15/20 19:57 Simvastatin 10 Mg Tab PO 10 mg HS ETHEL Administration Sodium Chloride 10 ml 05/11/20 20:59 05/16/20 06:28 Flush - Normal Saline 10 Ml Syringe IVF 10 ml Q12HR PRN Administration Saline Flush - Exam General Appearance: awake alert Neck: no JVD Heart: RRR, no murmur Respiratory: CTAB Gastrointestinal: soft, normal bowel sounds Extremities - other findings: lymphedema, R leg bandaged ankle to knee Hosp A/P (1) Cellulitis and abscess of right leg Code(s): L03.115 - CELLULITIS OF RIGHT LOWER LIMB; L02.415 - CUTANEOUS ABSCESS OF RIGHT LOWER LIMB Status: Acute (2) Leucocytosis Code(s): D72.829 - ELEVATED WHITE BLOOD CELL COUNT, UNSPECIFIED Status: Acute Qualifiers: Leukocytosis type: unspecified Qualified Code(s): D72.829 - Elevated white blood cell count, unspecified (3) Lymphedema of lower extremity Code(s): I89.0 - LYMPHEDEMA, NOT ELSEWHERE CLASSIFIED Status: Acute Qualifiers: Laterality: bilateral Qualified Code(s): I89.0 - Lymphedema, not elsewhere classified (4) Diabetes mellitus type 2 in obese Code(s): E11.69 - TYPE 2 DIABETES MELLITUS WITH OTHER SPECIFIED COMPLICATION; E66.9 - OBESITY, UNSPECIFIED Status: Acute (5) Hypertension Code(s): I10 - ESSENTIAL (PRIMARY) HYPERTENSION Status: Chronic Qualifiers: Hypertension type: essential hypertension Qualified Code(s): I10 - Essential (primary) hypertension - Plan CM for outpatint wound care cont iv cefazolin ac/ss/ etc BP control monitor CBC, etc
[2020-05-16 11:55] LABS: Eosinophils 3 % (0-10); Hemoglobin 10.7 g/dL (12.0-16.0); Hypochromia SLIGHT = 6-15 cells (100X) (0-5/hpf); Lymphocytes 17 % (21-51); MDiff Complete? YES; Mean Corpuscular HGB CONC 30.5 g/dL (32.0-36.0); Mean Corpuscular Hemoglobin 25.2 pg (27.0-31.0); Mean Corpuscular Volume 82.7 fL (78.0-98.0); Mean Platelet Volume 10.3 fL (7.4-10.4); Monocytes 3 % (0-10); Neutrophil 77 % (42-75); Platelet Count 192 thou/uL (130-400); Platelet Morphology Comment Appears Adequate; RBC Distribution Width 15.4 % (11.5-14.5); Red Blood Cell (RBC) Count 4.25 mill/uL (4.20-5.40); White Blood Cell (WBC) Count 15.4 thou/uL (4.8-10.8)
[2020-05-16] MEDS: HumaLOG 300 UNITS/3 ML VIAL SC PRN (12:05)
[2020-05-16 12:54] VITALS: BMI 56.3
--- NOTE | 2020-05-17 08:21 | DIS ---
DATE OF ADMISSION: 05/11/2020 DATE OF DISCHARGE: 05/16/2020 PRIMARY CARE PROVIDER: Ciara Jacob MD FINAL DIAGNOSES: Cellulitis, right lower leg; diabetes mellitus type 2; hypertension; lymphedema of bilateral lower extremities. DISCHARGE MEDICINES: New additions: 1. Omnicef 600 mg daily for 10 days. 2. Diltiazem 180 mg p.o. daily. 3. Hydralazine 25 mg p.o. b.i.d. Old medicines: 1. Lasix 40 mg twice a day. 2. Gabapentin 300 mg as directed. 3. Insulin lispro on a sliding scale. 4. Potassium acetate 20 mEq p.o. q.p.m. 5. Pravachol 20 mg p.o. daily. 6. Clonidine 0.1 mg p.o. b.i.d. 7. Insulin glargine 75 units subcu twice a day. 8. Aspirin 81 mg a day. ALLERGIES: LISINOPRIL, METFORMIN. PENDING AT TIME OF DISCHARGE: Nothing. Blood cultures are currently no growth over 5 days. HOSPITAL COURSE: The patient admitted to the hospital through [facility] to the Hospitalist Service. She had generalized weakness, had had a fall. She was tested for COVID, it was negative. Workup in a [place] emergency room revealed 33,000 white count, showed troponin and lactate that were elevated. She was given Rocephin and vancomycin and transferred to the [facility]. Her initial laboratory here; white count 20,600, hemoglobin 11.5, platelet count 153,000. Her basic metabolic profile was normal. Blood sugars were in the 180 range. Her troponins were elevated at 1.095, 0.939, 0.0651. She was seen in consultation by Dr. Pasquale Johnson. He thought her troponins were due to recent infection and illness. Vascular ultrasound, no evidence of right lower extremity DVT. Consultation was obtained from Dr. Soto, Infectious Disease, who suggested she had cellulitis in the right lower leg. Recommended switching to cefazolin 3 times a day. The patient's leg showed dramatic healing. White count slowly dropped from the early 33,000, is currently at 15,000 with no definitive left shift. The leg has been wrapped, it was draining. Arrangements have made for outpatient wound therapy. She is being discharged on [address] Soto' consultation did recommend suppressive therapy with penicillin VK 250 mg p.o. b.i.d. for 12 months, after the course of IV, then oral antibiotics. This will be left to the primary care physician to write the prescriptions. As I mentioned before, cultures are negative. She is being discharged home. Followup wound care has been arranged. Leg is currently bandaged. Ms. Isaacs does have morbid obesity, severe lymphedema, and the chance of recurrence is unfortunately high. Follow up with Dr. Ciara Jacob in 3 to 7 days. Job ID: [id number]
--- NOTE | 2020-05-17 23:38 | PQF ---
Dear : Yung, Shasta Date 05/17/20 Please exercise your independent, professional judgment in responding to the clarification form. Clinical indicators are provided on the bottom of this form for your review Can you please further clarify if Type 2 TN is ruled in or ruled out? Type 2 TN [ ] Ruled in diagnosis [ ] Continue to treat [ ] Resolved [ ] Ruled out diagnosis [ ] Improving [ ] Cannot rule out diagnosis [ ] Other diagnosis please specify [ ] Unable to determine Physician Signature: Date/Time: For continuity of documentation, please document condition throughout progress notes and discharge summary. Thank You. To be completed by CDI/Coding staff for physician review: Present Clinical Indicators - Signs / Symptoms / Labs Results and Location in Medical Record [ x ] There are inverted T waves in aVL overall impression nospecific ED Provider pg.2 [ x ] Elevated troponin ED Provider pg.3 [ x ] Troponin I: 1.095H, 0.939H, 0.651H Laboratory [ x ] Complaint of generalized weakness H and P pg.1 [ x ] Treated elevated troponin as NSTEMI H and P pg.4 [ x ] EKG, nor,al sinus rhythm with no significant ST-T wave changes suggesting ischemia Consult pg.2 Dr. Ramesh 05/12 [ x ] Elevated troponin 2/2 recent infection and illness Consult pg.2 Dr. Ramesh 05/12 [ x ] Elevated troponin likely due to Type 2 TN from sepsis Hospitalist PN pg.3 10 Present Risk Factors Results and Location in Medical Record [ x ] DM Consult pg.1 Dr. Ramesh 05/12 [ x ] HTN Consult pg.1 Dr. Ramesh 05/12 [ x ] Hyperlipidemia Consult pg.1 Dr. Ramesh 05/12 [ x ] Morbid obesity Consult pg.1 Dr. Ramesh 05/12 [ x ] LISA Consult pg.1 Dr. Ramesh 05/12 Present Treatments Results and Location in Medical Record [ x ] EKG ED Provider pg.2 [ x ] Cardiology Consult Dr. Ramesh 05/12 [ x ] IV Fluids MAR [ x ] Aspirin 8i mg PO MAR [ x ] Cardizem 180mg PO MAR CDS/Testing Shaking Shipping Signature: Thomas Lowe Phone #: [facility] [id number] Date 05/17/20 This is a permanent part of the Medical Record [facility]
== END 2020-05-16 15:45 | disposition home or self-care (01) | DRG 872 ==
LOC: ERS 18:06 → 2NO 20:07 → ONC 05-13 16:12
PROVIDERS: ADMIT Internal Medicine; ATTEND Internal Medicine
DX: A41.9 Sepsis, unspecified organism (principal); L03.115 Cellulitis of right lower limb; Z68.43 Body mass index [BMI] 50.0-59.9, adult; E11.9 Type 2 diabetes mellitus without complications; I10 Essential (primary) hypertension; I89.0 Lymphedema, not elsewhere classified; Z20.828 Contact with and (suspected) exposure to other viral communicable diseases; E66.01 Morbid (severe) obesity due to excess calories; E78.5 Hyperlipidemia, unspecified; I25.10 Atherosclerotic heart disease of native coronary artery without angina pectoris; G47.33 Obstructive sleep apnea (adult) (pediatric); M54.9 Dorsalgia, unspecified; G89.29 Other chronic pain; E78.00 Pure hypercholesterolemia, unspecified; I87.8 Other specified disorders of veins; Z79.4 Long term (current) use of insulin; Z98.51 Tubal ligation status; Z90.710 Acquired absence of both cervix and uterus; Z88.8 Allergy status to other drugs, medicaments and biological substances; Z79.899 Other long term (current) drug therapy; Z79.82 Long term (current) use of aspirin
CPT/HCPCS: 36415; 36416; 80048; 81003; 81015; 82553; 82565; 83605; 84145; 84484; 85025; 93005; 93306; 96374; J0690; J0692; J1650; J1815; J3370; J3490; Q0162; U0002

== ENCOUNTER 2021-12-04 21:39 | Inpatient (IN) | payer BC ==
[2021-12-04] MEDS ORDERED: Acetaminophen 325 MG TAB PO PRN (23:30)
[2021-12-04] MEDS ORDERED: Ondansetron ODT 4 MG TAB SL PRN (23:30)
[2021-12-04] MEDS ORDERED: Ondansetron PF 4 MG/2 ML Vial IVP PRN (23:30)
[2021-12-04] MEDS ORDERED: Nitroglycerin 0.4 MG TAB (25 Tab Bottle) SL PRN (23:41)
[2021-12-04] MEDS ORDERED: hydrALAZINE 20 MG/ML VIAL SLOW IVP PRN (23:43)
[2021-12-05 00:08] VITALS: BMI 59.1
[2021-12-05 00:26] LABS: Troponin I 0.023 ng/mL (< 0.028)
[2021-12-05] MEDS ORDERED: Acetaminophen 650 MG Suppository PR PRN (01:11)
[2021-12-05] MEDS ORDERED: HumaLOG 300 UNITS/3 ML VIAL SC PRN ×2 (01:11)
[2021-12-05] MEDS ORDERED: Dextrose 5% in Water 1,000 ML IV PRN (01:11)
[2021-12-05] MEDS ORDERED: Dextrose 50% Abboject 50 ML SYRINGE SLOW IVP PRN (01:11)
[2021-12-05] MEDS ORDERED: hydrALAZINE 25 MG TAB PO PRN (01:16)
[2021-12-05 02:50] LABS: #Eosinphils 0.2 thou/uL (0.0-0.7); #Lymphocytes 2.4 thou/uL (1.20-3.40); #Monocytes 0.5 thou/uL (0.11-0.59); #Neutrophils 6.3 thou/uL (1.40-6.50); %Basophils 0.3 % (0.0-1.0); %Eosinophils 1.9 % (0.0-10.0); %Lymphocytes 25.7 % (21.0-51.0); %Monocytes 5.3 % (0.0-10.0); %Neutrophils 66.8 % (42.0-75.0); Hemoglobin 10.9 g/dL (12.0-16.0); Mean Corpuscular HGB CONC 31.2 g/dL (32.0-36.0); Mean Corpuscular Hemoglobin 26.1 pg (27.0-31.0); Mean Corpuscular Volume 83.8 fL (78.0-98.0); Mean Platelet Volume 10.2 fL (7.4-10.4); Platelet Count 175 thou/uL (130-400); RBC Distribution Width 14.9 % (11.5-14.5); Red Blood Cell (RBC) Count 4.17 mill/uL (4.20-5.40); White Blood Cell (WBC) Count 9.4 thou/uL (4.8-10.8)
[2021-12-05 03:15] LABS: Troponin I 0.022 ng/mL (< 0.028)
[2021-12-05 03:18] LABS: Anion Gap 11 mmol/L (10-20); BUN (Urea Nitrogen) 13 mg/dL (9.8-20.1); Calc. Creatinine Clearance 234 mL/min (70-130); Calcium 8.6 mg/dL (7.8-10.44); Carbon Dioxide 26 mmol/L (22-29); Chloride 106 mmol/L (98-107); Glucose 167 mg/dL (70-105); Magnesium 1.9 mg/dL (1.6-2.6); Potassium 3.4 mmol/L (3.5-5.1); Sodium 140 mmol/L (136-145)
[2021-12-05] MEDS ORDERED: Morphine 4 MG/ML VIAL SLOW IVP PRN (05:37)
[2021-12-05] MEDS ORDERED: Enoxaparin Sodium 40 MG/0.4 ML SYRINGE SC SCH (09:00)
[2021-12-05] MEDS ORDERED: Insulin Regular 300 UNITS/3 ML VIAL SC PRN (10:22)
[2021-12-05 11:55] LABS: SARS-CoV-2 PCR by NAA Not Detected (NotDetected)
[2021-12-05] MEDS: Enoxaparin Sodium 100 MG/ML SYRINGE SC SCH ×2 (13:45→20:36)
[2021-12-05] MEDS: Enoxaparin Sodium 80 MG/0.8 ML SYRINGE SC SCH ×2 (13:45→20:36)
[2021-12-05] MEDS: Furosemide 40 MG TAB PO SCH ×2 (13:45→20:35)
[2021-12-05] MEDS: Aspirin Chewable 81 MG TAB PO SCH (13:45)
[2021-12-05] MEDS ORDERED: Regadenoson 0.4 MG/5 ML SYRINGE ONE (13:53)
[2021-12-05] MEDS ORDERED: Potassium Chloride 10 MEQ TAB PO SCH (17:00)
[2021-12-05] MEDS: Acetaminophen 325 MG TAB PO PRN (20:35)
[2021-12-05] MEDS: Insulin Glargine 30 UNITS/0.3 ML VIAL SC SCH (20:37)
[2021-12-05] MEDS ORDERED: Atorvastatin Calcium 40 MG TAB PO SCH (21:00)
[2021-12-05] MEDS ORDERED: Gabapentin 300 MG CAP PO SCH (21:00)
[2021-12-05] MEDS ORDERED: Non-Formulary Item 1 EACH (Insulin Glargine,Hum.Rec.Anlog [Toujeo Solostar] 300 UNIT/ML I SC SCH (21:00)
[2021-12-06] MEDS ORDERED: Potassium Chloride 20 MEQ TAB PO SCH (08:00)
[2021-12-06] MEDS: Aspirin Chewable 81 MG TAB PO SCH (08:14)
[2021-12-06] MEDS: Furosemide 40 MG TAB PO SCH (08:14)
[2021-12-06] MEDS: Enoxaparin Sodium 80 MG/0.8 ML SYRINGE SC SCH (08:18)
[2021-12-06] MEDS: Enoxaparin Sodium 100 MG/ML SYRINGE SC SCH (08:18)
[2021-12-06] MEDS: Acetaminophen 325 MG TAB PO PRN (10:12)
[2021-12-06] MEDS: Insulin Glargine 30 UNITS/0.3 ML VIAL SC SCH (10:13)
[2021-12-06 11:34] VITALS: BP 143/65; TEMP 97.7
== END 2021-12-06 15:45 | disposition home or self-care (01) | DRG 313 ==
LOC: 2SW 23:22 → OBSVTOIN 12-05 10:35
PROVIDERS: ADMIT Student in an Organized Health Care Education/Training Program; ATTEND Internal Medicine
DX: R07.89 Other chest pain (principal); Z68.43 Body mass index [BMI] 50.0-59.9, adult; Z20.822 Contact with and (suspected) exposure to COVID-19; I10 Essential (primary) hypertension; E66.01 Morbid (severe) obesity due to excess calories; I89.0 Lymphedema, not elsewhere classified; E11.42 Type 2 diabetes mellitus with diabetic polyneuropathy; G47.33 Obstructive sleep apnea (adult) (pediatric); E87.6 Hypokalemia; E78.5 Hyperlipidemia, unspecified; Z88.8 Allergy status to other drugs, medicaments and biological substances; Z79.899 Other long term (current) drug therapy; Z79.4 Long term (current) use of insulin; Z79.82 Long term (current) use of aspirin; Z98.51 Tubal ligation status; Z90.710 Acquired absence of both cervix and uterus
CPT/HCPCS: 36415; 36416; 71045; 78452; 80048; 83735; 84484; 85025; 85379; 93017; 94760; A9500; G0378; J1650; J2785; U0003; U0005

== ENCOUNTER 2023-08-03 01:56 | Inpatient (IN) | payer OTHER ==
[2023-08-03] MEDS ORDERED: Nitroglycerin 2% Ointment 1 INCH/1 GM Packet ONE (02:37)
[2023-08-03] MEDS ORDERED: Metoclopramide HCl 10 MG (2 mL) VIAL ONE ×2 (03:11→03:21)
[2023-08-03] MEDS ORDERED: diphenhydrAMINE 50 MG/ML VIAL ONE (03:11)
[2023-08-03 04:18] LABS: Hematocrit 39.1 % (36.0-47.0); Hemoglobin 11.7 g/dL (12.0-16.0); Manual Diff?? YES; Mean Corpuscular HGB CONC 29.9 g/dL (32.0-36.0); Mean Corpuscular Hemoglobin 24.5 pg (27.0-31.0); Mean Corpuscular Volume 81.8 fl (78.0-98.0); Platelet Count 150 10x3/uL (130-400); RBC Distribution Width 16.3 % (11.5-14.5); Red Blood Cell (RBC) Count 4.78 mill/uL (4.20-5.40)
[2023-08-03 04:25] LABS: Delete Auto Diff?? YES
[2023-08-03 04:44] LABS: Troponin I 0.065 ng/mL (< 0.028)
[2023-08-03 04:47] LABS: ALT (SGPT) 14 U/L (8-55); AST (SGOT) 13 U/L (5-34); Albumin 3.6 g/dL (3.5-5.0); Alkaline Phosphatase 112 U/L (40-110); Anion Gap 12 mmol/L (10-20); BUN (Urea Nitrogen) 12 mg/dL (9.8-20.1); Bilirubin, Total 0.9 mg/dL (0.2-1.2); Calc. Creatinine Clearance 0 mL/min (70-130); Carbon Dioxide 32 mmol/L (22-29); Chloride 101 mmol/L (98-107); Estimated GFR 86; Globulin 3.9 g/dL (2.4-3.5); Glucose 144 mg/dL (70-105); Potassium 3.6 mmol/L (3.5-5.1); Protein, Total 7.5 g/dL (6.0-8.3); Sodium 141 mmol/L (136-145)
[2023-08-03] MEDS ORDERED: Acetaminophen 325 MG TAB PO PRN (05:02)
[2023-08-03] MEDS ORDERED: Ondansetron PF 4 MG/2 ML Vial IVP PRN (05:02)
[2023-08-03] MEDS ORDERED: Ipratropium/Albuterol 3 ML NEB EZPAP PRN (05:07)
[2023-08-03] MEDS ORDERED: Ipratropium/Albuterol 3 ML NEB ONE (05:25)
[2023-08-03 05:38] LABS: Eosinophils 2 % (0-10); Lymphocytes 13 % (21-51); Monocytes 6 % (0-10); Neutrophil 78 % (42-75); Reactive Lymphocytes 1 % (0-10)
[2023-08-03 05:39] LABS: Anisocytosis SLIGHT = 6-15 cells (100X) (0-5/hpf); Ovalocytes SLIGHT = 2-5 cells (100X) (0-1/hpf); Polychromasia SLIGHT = 2-3 cells (100X) (0-2/hpf)
[2023-08-03 05:40] LABS: Hypochromia SLIGHT = 6-15 cells (100X) (0-5/hpf); Platelet Adequacy Comment Platelets Normal; Stomatocytes SLIGHT = 2-5 cells (100X) (0-1/hpf)
[2023-08-03] MEDS ORDERED: Furosemide 40 MG (4 mL) VIAL ONE ×2 (06:35→14:19)
[2023-08-03] MEDS: Furosemide 40 MG (4 mL) VIAL SLOW IVP SCH ×2 (06:39→14:32)
[2023-08-03 07:04] LABS: Troponin I 0.051 ng/mL (< 0.028)
[2023-08-03] MEDS ORDERED: hydrALAZINE 25 MG TAB PO PRN (07:54)
[2023-08-03] MEDS: Ipratropium/Albuterol 3 ML NEB NEB SCH ×5 (08:14→22:26)
[2023-08-03] MEDS ORDERED: cloNIDine 0.1 MG TAB ONE (09:00)
[2023-08-03] MEDS ORDERED: Enoxaparin 40 MG (0.4 mL) SYRINGE ONE (09:00)
[2023-08-03] MEDS ORDERED: dilTIAZem CD 180 MG CAP PO SCH (09:00)
[2023-08-03] MEDS: Insulin Glargine 30 UNITS/0.3 ML VIAL SC SCH ×2 (09:12→23:09)
[2023-08-03] MEDS: Enoxaparin 40 MG (0.4 mL) SYRINGE SC SCH (09:12)
[2023-08-03] MEDS: cloNIDine 0.1 MG TAB PO SCH ×2 (09:15→23:08)
[2023-08-03] MEDS: Furosemide 80 MG TAB PO SCH ×2 (09:16→14:32)
[2023-08-03] MEDS ORDERED: Furosemide 40 MG TAB ONE (14:24)
[2023-08-03 18:19] VITALS: BMI 58.2
[2023-08-03] MEDS ORDERED: Glucagon 1 MG/ML KIT IM PRN (20:22)
[2023-08-03] MEDS ORDERED: Dextrose 50% Abboject 50 ML SYRINGE SLOW IVP PRN (20:22)
[2023-08-03] MEDS ORDERED: Dextrose 5% in Water 1,000 ML IV PRN (20:22)
[2023-08-03] MEDS ORDERED: HumaLOG 300 UNITS/3 ML VIAL SC PRN ×2 (20:22)
[2023-08-03] MEDS: Gabapentin 300 MG CAP PO SCH (23:08)
[2023-08-03] MEDS: Atorvastatin Calcium 40 MG TAB PO SCH (23:08)
[2023-08-04] MEDS: Ipratropium/Albuterol 3 ML NEB NEB SCH ×2 (02:29→08:23)
[2023-08-04 04:31] LABS: #Eosinphils 0.3 thou/uL (0.0-0.7); #Monocytes 0.7 thou/uL (0.11-0.59); %Basophils 0.3 % (0.0-1.0); %Eosinophils 3.8 % (0.0-10.0); %Lymphocytes 21.4 % (21.0-51.0); %Monocytes 8.8 % (0.0-10.0); %Neutrophils 65.4 % (42.0-75.0); Hematocrit 38.3 % (36.0-47.0); Hemoglobin 11.6 g/dL (12.0-16.0); Mean Corpuscular HGB CONC 30.3 g/dL (32.0-36.0); Mean Corpuscular Hemoglobin 24.9 pg (27.0-31.0); Mean Corpuscular Volume 82.2 fl (78.0-98.0); Mean Platelet Volume 11.8 fL (7.4-10.4); Platelet Count 131 10x3/uL (130-400); RBC Distribution Width 16.4 % (11.5-14.5); Red Blood Cell (RBC) Count 4.66 mill/uL (4.20-5.40); White Blood Cell (WBC) Count 7.6 10x3/uL (4.8-10.8)
[2023-08-04 05:03] LABS: Anion Gap 14 mmol/L (10-20); BUN (Urea Nitrogen) 14 mg/dL (9.8-20.1); Calc. Creatinine Clearance 228 mL/min (70-130); Calcium 8.5 mg/dL (7.8-10.44); Carbon Dioxide 28 mmol/L (22-29); Chloride 101 mmol/L (98-107); Estimated GFR 93; Glucose 90 mg/dL (70-105); Potassium 3.2 mmol/L (3.5-5.1); Sodium 140 mmol/L (136-145)
[2023-08-04] MEDS: Furosemide 40 MG (4 mL) VIAL SLOW IVP SCH ×2 (05:42→15:27)
[2023-08-04] MEDS ORDERED: Potassium Chloride 20 MEQ TAB PO SCH (08:15)
[2023-08-04] MEDS: Enoxaparin 40 MG (0.4 mL) SYRINGE SC SCH (08:28)
[2023-08-04] MEDS: dilTIAZem CD 240 MG CAP PO SCH (08:29)
[2023-08-04] MEDS: cloNIDine 0.1 MG TAB PO SCH ×2 (08:29→19:55)
[2023-08-04] MEDS: Insulin Glargine 30 UNITS/0.3 ML VIAL SC SCH ×2 (11:45→22:32)
[2023-08-04] MEDS: Gabapentin 300 MG CAP PO SCH (19:54)
[2023-08-04] MEDS: Atorvastatin Calcium 40 MG TAB PO SCH (19:55)
[2023-08-05 05:08] LABS: #Eosinphils 0.3 thou/uL (0.0-0.7); #Monocytes 0.5 thou/uL (0.11-0.59); #Neutrophils 5.3 thou/uL (1.40-6.50); %Basophils 0.3 % (0.0-1.0); %Eosinophils 4.1 % (0.0-10.0); %Lymphocytes 21.6 % (21.0-51.0); %Monocytes 6.9 % (0.0-10.0); %Neutrophils 66.8 % (42.0-75.0); Hematocrit 41.3 % (36.0-47.0); Hemoglobin 12.2 g/dL (12.0-16.0); Mean Corpuscular HGB CONC 29.5 g/dL (32.0-36.0); Mean Corpuscular Hemoglobin 24.3 pg (27.0-31.0); Mean Corpuscular Volume 82.3 fl (78.0-98.0); Mean Platelet Volume 12.6 fL (7.4-10.4); Platelet Count 166 10x3/uL (130-400); RBC Distribution Width 16.6 % (11.5-14.5); Red Blood Cell (RBC) Count 5.02 mill/uL (4.20-5.40); White Blood Cell (WBC) Count 7.9 10x3/uL (4.8-10.8)
[2023-08-05 05:34] LABS: Anion Gap 13 mmol/L (10-20); BUN (Urea Nitrogen) 17 mg/dL (9.8-20.1); Calc. Creatinine Clearance 223 mL/min (70-130); Calcium 8.7 mg/dL (7.8-10.44); Carbon Dioxide 30 mmol/L (22-29); Chloride 102 mmol/L (98-107); Estimated GFR 90; Glucose 102 mg/dL (70-105); Potassium 3.6 mmol/L (3.5-5.1); Sodium 141 mmol/L (136-145)
[2023-08-05] MEDS: Furosemide 40 MG (4 mL) VIAL SLOW IVP SCH (05:37)
[2023-08-05] MEDS: Insulin Glargine 30 UNITS/0.3 ML VIAL SC SCH ×2 (08:56→11:45)
[2023-08-05] MEDS: cloNIDine 0.1 MG TAB PO SCH (08:56)
[2023-08-05] MEDS: dilTIAZem CD 240 MG CAP PO SCH (08:56)
[2023-08-05] MEDS: Enoxaparin 40 MG (0.4 mL) SYRINGE SC SCH (08:56)
[2023-08-05 12:23] VITALS: BP 134/64; TEMP 98.7
== END 2023-08-05 14:02 | disposition home or self-care (01) | DRG 280 ==
LOC: ERS 01:56 → ERHOLD 05:02 → 2NO 17:03
PROVIDERS: ADMIT Internal Medicine; ATTEND Internal Medicine
DX: I11.0 Hypertensive heart disease with heart failure (principal); I50.33 Acute on chronic diastolic (congestive) heart failure; I21.A1 Myocardial infarction type 2; Z68.43 Body mass index [BMI] 50.0-59.9, adult; K21.9 Gastro-esophageal reflux disease without esophagitis; I25.10 Atherosclerotic heart disease of native coronary artery without angina pectoris; E78.00 Pure hypercholesterolemia, unspecified; E11.42 Type 2 diabetes mellitus with diabetic polyneuropathy; F32.A Depression, unspecified; E78.5 Hyperlipidemia, unspecified; E11.51 Type 2 diabetes mellitus with diabetic peripheral angiopathy without gangrene; E87.6 Hypokalemia; G47.33 Obstructive sleep apnea (adult) (pediatric); E66.01 Morbid (severe) obesity due to excess calories; F41.9 Anxiety disorder, unspecified; Z79.4 Long term (current) use of insulin; Z98.51 Tubal ligation status; Z90.710 Acquired absence of both cervix and uterus; Z88.8 Allergy status to other drugs, medicaments and biological substances; Z79.82 Long term (current) use of aspirin; Z79.899 Other long term (current) drug therapy
CPT/HCPCS: 36415; 36416; 80048; 80053; 83880; 84484; 85025; 93005; 93306; 94640; 96374; 96375; J1200; J1650; J1815; J1940; J2765; J7620